=== PATIENT | male | born 1945 | race American Indian/Alaskan Native ===

== ENCOUNTER 2017-08-08 09:55 | Inpatient (IN) | payer MEDICARE, MEDICAID ==
[2017-08-08 09:57] VITALS: BMI 16.0
[2017-08-08] MEDS ORDERED: Sodium Chloride 0.9% 1,000 ML IV STA (10:26)
[2017-08-08] MEDS ORDERED: Morphine 4 MG/ML VIAL IV STA ×2 (10:26→18:10)
--- NOTE | 2017-08-08 10:40 | ED PDOC ---
HPI: Abdomen Time Seen by Provider: 08/08/17 10:04 Chief Complaint (Provider): Abdominal pain History Per: Patient History/Exam Limitations: no limitations Onset/Duration Of Symptoms: Hrs Outside of [place] travel?: No Current Symptoms Are (Timing): Still Present Location Of Pain/Discomfort: Diffuse Associated Symptoms: denies: Fever, Vomiting, Diarrhea, Urinary Symptoms Additional Complaint(s): 72yo male, presents to ED for evaluation of abdominal pain, associated with nausea since 7 am this morning. patient states pain is constant, denies any fever, vomiting or diarrhea. Patient states his last bowel movement was yesterday, which was normal. He denies any dysuria, hematuria. Patient has no other medical complaints. Past Medical History Reviewed: Historical Data, Nursing Documentation, Vital Signs Vital Signs: Last Vital Signs Temp 99.1 F 08/10/17 11:54 Pulse 59 L 08/10/17 11:54 Resp 18 08/10/17 11:54 BP 145/85 08/10/17 11:54 Pulse Ox 97 08/10/17 11:54 - Medical History PMH: No Chronic Diseases - Surgical History Surgical History: No Surg Hx - Family History Family History: States: No Known Family Hx - Home Medications Home Medications: Ambulatory Orders Medication Instructions Recorded Diclofenac Sodium [Diclofenac 100 mg PO DAILY PRN 08/08/17 Sodium ER] Pantoprazole Sodium [Protonix] 40 mg PO DAILY 08/08/17 Sucralfate [Carafate Oral Susp] 10 ml PO BID 08/08/17 traMADol [Ultram] 50 mg PO Q6H PRN 08/08/17 amLODIPine [Norvasc] 10 mg PO DAILY #30 tab 08/10/17 - Allergies Allergies/Adverse Reactions: Allergies Allergy/AdvReac Type Severity Reaction Status Date / Time No Known Allergies Allergy Verified 08/08/17 10:26 Review of Systems ROS Statement: Except As Marked, All Systems Reviewed And Found Negative Constitutional: Negative for: Fever, Chills Gastrointestinal: Positive for: Nausea, Abdominal Pain. Negative for: Vomiting , Diarrhea Genitourinary Male: Negative for: Dysuria, Frequency, Hematuria Physical Exam - Reviewed Nursing Documentation Reviewed: Yes Vital Signs Reviewed: Yes - Physical Exam Appears: Positive for: Non-toxic, No Acute Distress Head Exam: Positive for: ATRAUMATIC, NORMAL INSPECTION, NORMOCEPHALIC Skin: Positive for: Normal Color Eye Exam: Positive for: Normal appearance Neck: Positive for: Normal, Supple Cardiovascular/Chest: Positive for: Regular Rate, Rhythm Respiratory: Positive for: Normal Breath Sounds. Negative for: Respiratory Distress Gastrointestinal/Abdominal: Positive for: Soft, Tenderness (diffuse). Negative for: Guarding, Rebound Neurologic/Psych: Positive for: Alert, Oriented. Negative for: Motor/Sensory Deficits - Laboratory Results Result Diagrams: 08/09/17 13:03 08/10/17 04:45 - ECG O2 Sat by Pulse Oximetry: 97 (RA) Pulse Ox Interpretation: Normal Medical Decision Making Medical Decision Making: Time: 1026 Impression: Abdominal pain Plan: -- CT AP w/ IV Contrast -- Labs -- Morphine 2mg IV -- Zofran 4mg IV -- IV Fluids Reassess Time: 1400 CT Abdomen IMPRESSION: Possible pancreas divisum. Recommend evaluation with MRCP. Dilated pancreatic duct. Dilated common bile duct. No calcified common duct calculus. No evidence of cholecystitis or cholelithiasis. Mild intrahepatic biliary dilatation. 14:50 Case discussed with vice president of news. Scribe Attestation: Documented by Margaret Rich acting as a scribe for aJnet Pastor MD. Provider Attestation: All medical record entries made by the Scribe were at my direction and personally dictated by me. I have reviewed the chart and agree that the record accurately reflects my personal performance of the history, physical exam, medical decision making, and the department course for this patient. I have also personally directed, reviewed, and agree with the discharge instructions and disposition. Disposition - Clinical Impression Clinical Impression: Pancreas divisum, Elevated BP without diagnosis of hypertension - Patient ED Disposition Is Patient to be Admitted: Yes - Disposition Disposition Time: 15:26 Condition: STABLE - Pt Status Changed To: Hospital Disposition Of: Inpatient - Admit Certification Admit to Inpatient:: After my assessment, the patient will require hospitalization for at least two midnights. This is because of the severity of symptoms shown, intensity of services needed, and/or the medical risk in this patient being treated as an outpatient. - POA Present On Arrival: None
[2017-08-08] MEDS ORDERED: Morphine 4 MG/ML VIAL ONE ×2 (11:10→18:05)
[2017-08-08 11:39] LABS: BASO % 0.9 % (0.0-2.0); HEMATOCRIT 46.5 % (35.0-51.0); LYMPH # 1.5 K/uL (1.0-4.3); LYMPH % 34.5 % (20.0-40.0); MEAN CELL VOLUME 95.8 fl (80.0-94.0); MEAN CORPUSCULAR HEMOGLOBIN 31.4 pg (27.0-31.0); MEAN CORPUSCULAR HGB CONC 32.8 g/dL (33.0-37.0); MEAN PLATELET VOLUME 9.2 fl (7.2-11.7); MONO # 0.4 K/uL (0.0-0.8); MONO % 10.4 % (0.0-10.0); NEUT # 2.3 K/uL (1.8-7.0); NEUT % 53.2 % (50.0-75.0); NRBC % 0.1 % (0.0-0.0); RED CELL DISTRIBUTION WIDTH 14.2 % (11.5-14.5); WHITE BLOOD COUNT 4.3 K/uL (4.8-10.8)
[2017-08-08 11:52] LABS: RBC URINE 1 /hpf (0-3); URINE BACTERIA RARE (<OCC); URINE BILIRUBIN NEGATIVE (NEGATIVE); URINE BLOOD NEGATIVE (NEGATIVE); URINE COLOR AMBER (YELLOW); URINE GLUCOSE (UA) NEG (Normal); URINE KETONE 20 mg/dL (NEGATIVE); URINE LEUKOCYTE ESTERASE NEG Leu/uL (Negative); URINE PROTEIN 100 mg/dL (NEGATIVE)
[2017-08-08 11:52] LABS: PARTIAL THROMBOPLASTIN TIME 30.7 Seconds (25.6-37.1)
[2017-08-08 11:53] LABS: WBC URINE 3 /hpf (0-5)
[2017-08-08 11:55] LABS: ALKALINE PHOSPHATASE 76 U/L (38-126); ALT/SGPT 160 U/L (21-72); AST/SGOT 126 U/L (17-59); BILIRUBIN,TOTAL 0.9 mg/dl (0.2-1.3); BLOOD UREA NITROGEN 15 mg/dl (9-20); CALCIUM 9.5 mg/dL (8.4-10.2); CARBON DIOXIDE 26 mmol/L (22-30); CHLORIDE 104 mmol/L (98-107); GFR AFRICAN-AMERICAN > 60; GLUCOSE,RANDOM 87 mg/dL (75-110); LIPASE 81 U/L (23-300); SODIUM 142 mmol/l (132-148); TOTAL PROTEIN 9.3 G/DL (6.3-8.2)
[2017-08-08 11:56] LABS: ALB/GLOB RATIO 1.1 (1.0-2.1)
[2017-08-08] MEDS ORDERED: Iohexol 300 100 ML IJ ONE (12:45)
[2017-08-08] MEDS ORDERED: Sodium Chloride 0.9% 50 ML IV ONE (12:45)
--- NOTE | 2017-08-08 13:57 | CT ---
PROCEDURE: CT Abdomen and Pelvis with contrast HISTORY: Gen abd pain, nausea COMPARISON: None. TECHNIQUE: Contrast dose: 95 mL Omnipaque 300 Radiation dose: Total exam DLP = 309.76 mGy-cm. This CT exam was performed using one or more of the following dose reduction techniques: Automated exposure control, adjustment of the mA and/or kV according to patient size, and/or use of iterative reconstruction technique. FINDINGS: LOWER THORAX: Unremarkable. LIVER: Nonspecific 8 mm low-attenuation lesion the anterior right hepatic lobe. No other hepatic mass identified. Mild intrahepatic biliary ductal dilatation. Normal size and contour. Normal attenuation. GALLBLADDER AND BILE DUCTS: No calcified gallstones or mural thickening. Dilated common bile duct up to approximately 10 mm. No calcified common duct stone is seen. The intrapancreatic portion of the common bile duct measures 5 mm. PANCREAS: No mass. No peripancreatic fluid. Diffuse mild dilatation of the pancreatic duct. There is questionable pancreas divisum, with possible insertion of the dilated ventral duct separately from the common bile duct, into the 2nd portion of the duodenum. There is a questionable separate dorsal duct. Recommend evaluation with MRCP. SPLEEN: Unremarkable. ADRENALS: Unremarkable. No mass. KIDNEYS AND URETERS: Unremarkable. No hydronephrosis. No solid mass. VASCULATURE: Unremarkable. No aortic aneurysm BOWEL: Unremarkable. No obstruction. No gross mural thickening. APPENDIX: Not identified. PERITONEUM: Unremarkable. No free fluid. No free air. LYMPH NODES: Unremarkable. No enlarged lymph nodes. BLADDER: Unremarkable. REPRODUCTIVE: Normal prostate BONES: No acute fracture. Status post ORIF left hip. There is Schmorl's node in the inferior T11 vertebral endplate. OTHER FINDINGS: None. IMPRESSION: Possible pancreas divisum. Recommend evaluation with MRCP. Dilated pancreatic duct. Dilated common bile duct. No calcified common duct calculus. No evidence of cholecystitis or cholelithiasis. Mild intrahepatic biliary dilatation.
[2017-08-08] MEDS ORDERED: Sodium Chloride 0.9% 1,000 ML IV SCH (20:00)
--- NOTE | 2017-08-08 20:01 | CP.PCM.HP ---
Past Patient History - Infectious Disease Hx of Infectious Diseases: None - Past Social History Smoking Status: Never Smoked - PSYCHIATRIC Hx Substance Use: No - SURGICAL HISTORY Hx Surgeries: Yes - ANESTHESIA Hx Anesthesia: Yes Hx Anesthesia Reactions: No Meds Allergies/Adverse Reactions: Allergies Allergy/AdvReac Type Severity Reaction Status Date / Time No Known Allergies Allergy Verified 08/08/17 10:26 Results - Vital Signs Recent Vital Signs: Last Vital Signs Temp 98.2 F 08/08/17 09:57 Pulse 61 08/08/17 17:10 Resp 14 08/08/17 17:10 BP 196/101 H 08/08/17 18:52 Pulse Ox 96 08/08/17 17:10 - Labs Result Diagrams: 08/08/17 11:33 08/08/17 11:33 Labs: Laboratory Results - last 24 hr 08/08/17 08/08/17 08/08/17 11:33 11:33 11:33 WBC 4.3 L RBC 4.85 Hgb 15.2 Hct 46.5 MCV 95.8 H MCH 31.4 H MCHC 32.8 L RDW 14.2 Plt Count 170 MPV 9.2 Neut % (Auto) 53.2 Lymph % (Auto) 34.5 [place] % (Auto) 10.4 H Eos % (Auto) 1.0 Baso % (Auto) 0.9 Neut # 2.3 Lymph # 1.5 [place] # 0.4 Eos # 0.0 Baso # 0.0 PT 11.2 INR 1.0 APTT 30.7 Sodium 142 Potassium 4.0 Chloride 104 Carbon Dioxide 26 Anion Gap 16 BUN 15 Creatinine 0.8 Est GFR ( Amer) > 60 Est GFR (Non-Af Amer) > 60 Random Glucose 87 Calcium 9.5 Total Bilirubin 0.9 AST 126 H ALT 160 H Alkaline Phosphatase 76 Total Protein 9.3 H Albumin 4.9 Globulin 4.4 H Albumin/Globulin Ratio 1.1 Lipase 81 Urine Color Urine Clarity Urine pH Ur Specific [place] Urine Protein Urine Glucose (UA) Urine Ketones Urine Blood Urine Nitrate Urine Bilirubin Urine Urobilinogen Ur Leukocyte Esterase Urine RBC (Auto) Urine Microscopic WBC Urine Bacteria Hyaline Casts 08/08/17 11:38 WBC RBC Hgb Hct MCV MCH MCHC RDW Plt Count MPV Neut % (Auto) Lymph % (Auto) [place] % (Auto) Eos % (Auto) Baso % (Auto) Neut # Lymph # [place] # Eos # Baso # PT INR APTT Sodium Potassium Chloride Carbon Dioxide Anion Gap BUN Creatinine Est GFR ( Amer) Est GFR (Non-Af Amer) Random Glucose Calcium Total Bilirubin AST ALT Alkaline Phosphatase Total Protein Albumin Globulin Albumin/Globulin Ratio Lipase Urine Color Madelyn Urine Clarity Slighty-cloudy Urine pH 5.0 Ur Specific [place] 1.031 H Urine Protein 100 Urine Glucose (UA) Neg Urine Ketones 20 Urine Blood Negative Urine Nitrate Negative Urine Bilirubin Negative Urine Urobilinogen 4.0 Ur Leukocyte Esterase Neg Urine RBC (Auto) 1 Urine Microscopic WBC 3 Urine Bacteria Rare Hyaline Casts 3-5 H Assessment & Plan (1) Abdominal pain Assessment and Plan: Pancreatic Divisum Dilated CBD IVF Pain medication PRN Zofran PRN GI Consult for EGD and Sphinctorectomy Status: Acute Priority: High
[2017-08-08] MEDS: Sodium Chloride 0.45% 1,000 ML IV SCH (23:51)
[2017-08-09] MEDS ORDERED: Pneumococcal 23-Valent Vaccine IM ONE (05:07)
[2017-08-09] MEDS ORDERED: Influenza Vaccine(65YR UP)/PF 180 MCG/0.5 ML SYRINGE IM ONE (05:07)
[2017-08-09] MEDS ORDERED: Influenza Vaccine 18yr & older 0.5 ML/45 MCG SYR IM ONE (06:00)
[2017-08-09] MEDS: Sucralfate 1 gm/10 ml Oral Susp UD PO SCH ×2 (08:37→18:38)
[2017-08-09] MEDS: Pantoprazole 40 mg EC Tab PO SCH (08:37)
--- NOTE | 2017-08-09 10:54 | CARD ---
APPROVED REPORT EKG Measurement Heart [id number] <Conclusion> Normal sinus rhythm Normal ECG
[2017-08-09 13:10] LABS: HEMATOCRIT 45.4 % (35.0-51.0); MEAN CELL VOLUME 94.6 fl (80.0-94.0); MEAN CORPUSCULAR HEMOGLOBIN 31.9 pg (27.0-31.0); MEAN CORPUSCULAR HGB CONC 33.7 g/dL (33.0-37.0); RED CELL DISTRIBUTION WIDTH 13.8 % (11.5-14.5); WHITE BLOOD COUNT 5.9 K/uL (4.8-10.8)
[2017-08-09 13:28] LABS: ALB/GLOB RATIO 1.1 (1.0-2.1); ALKALINE PHOSPHATASE 72 U/L (38-126); ALT/SGPT 135 U/L (21-72); AMYLASE 198 U/L (30-110); AST/SGOT 93 U/L (17-59); BILIRUBIN,TOTAL 0.8 mg/dl (0.2-1.3); BLOOD UREA NITROGEN 9 mg/dl (9-20); CALCIUM 9.3 mg/dL (8.4-10.2); CARBON DIOXIDE 27 mmol/L (22-30); CHLORIDE 106 mmol/L (98-107); GFR AFRICAN-AMERICAN > 60; GLUCOSE,RANDOM 89 mg/dL (75-110); LIPASE 130 U/L (23-300); POTASSIUM 4.4 MMOL/L (3.6-5.0); SODIUM 141 mmol/l (132-148); TOTAL PROTEIN 8.7 G/DL (6.3-8.2)
--- NOTE | 2017-08-09 14:59 | MRI ---
MRCP Indication: Pancreatic divisum, abdominal pain Technique: Multiplanar, multisequence MR images of the abdomen were obtained, including heavily T2 weighted MRCP images of the biliary system. Rotating maximum intensity projection images of the biliary system were generated. A total of 766 images were submitted for review. Comparison: CT abdomen and pelvis with contrast performed 08/08/17 Findings: Examination limited by patient motion as well as paucity of intra-abdominal fat. Distended gallbladder without evidence of gallstones or pericholecystic edema/wall thickening. The noncontrast imaged portions of the liver, adrenal glands, kidneys, and spleen appear grossly unremarkable. There is no intrahepatic biliary ductal dilatation. The common bile duct is not adequately visualized. The pancreatic duct appears dilated measuring approximately 6-7 mm. No definitive filling defects are identified within the limited visualized portions of the common bile duct or within the visualized pancreatic duct. Question presence of ventral and dorsal pancreatic ducts consistent with pancreatic divisum however this cannot be confirmed on this study due to extensive patient motion. No bulky abdominal lymphadenopathy is seen. No ascites. No acute osseous abnormality is detected. Impression: Examination markedly limited by patient motion as well as paucity of intra-abdominal fat. The pancreatic duct appears dilated measuring approximately 6-7 mm. No definitive filling defects are identified within the limited visualized portions of the common bile duct or within the visualized pancreatic duct. Question presence of ventral and dorsal pancreatic ducts consistent with pancreatic divisum however this cannot be confirmed on this study due to extensive patient motion. The common bile duct is not adequately visualized. Distended gallbladder without evidence of gallstones or pericholecystic edema/wall thickening.
--- NOTE | 2017-08-09 15:09 | CP.PCM.CON ---
History of Present Illness - History of Present Illness History of Present Illness: 72 yo male admitted with midabdominal pain. Had nausea but no diarrhea. Previously was well. No chills or fever. Review of Systems - Constitutional Constitutional: absent: Chills - EENT Eyes: absent: Change in Vision Ears: absent: Decreased Hearing Nose/Mouth/Throat: absent: Epistaxis - Cardiovascular Cardiovascular: absent: Chest Pain - Respiratory Respiratory: absent: Cough - Gastrointestinal Gastrointestinal: Abdominal Pain - Genitourinary Genitourinary: absent: Change in Urinary Stream Past Patient History - Infectious Disease Hx of Infectious Diseases: None - Past Medical History & Family History Past Medical History?: No - Past Social History Smoking Status: Current Some Days Smoker - MUSCULOSKELETAL/RHEUMATOLOGICAL Hx Falls: No - PSYCHIATRIC Hx Substance Use: No - SURGICAL HISTORY Hx Surgeries: No - ANESTHESIA Hx Anesthesia: No Hx Anesthesia Reactions: No Meds Allergies/Adverse Reactions: Allergies Allergy/AdvReac Type Severity Reaction Status Date / Time No Known Allergies Allergy Verified 08/08/17 10:26 - Medications Medications: Current Medications Heparin Sodium (Porcine) (Heparin) 5,000 units SC Q8 [facility] PRN Reason: Protocol Last Admin: 08/09/17 08:37 Dose: Not Given Hydralazine HCl (Apresoline) 10 mg IVP Q6 PRN PRN Reason: Systolic Blood Pressure Hydromorphone HCl (Dilaudid) 0.5 mg IVP Q4 PRN PRN Reason: Pain, severe (8-10) Sodium Chloride (Sodium Chloride 0.45%) 1,000 mls @ 80 mls/hr IV .[id number] [facility] Stop: 08/09/17 23:19 Last Admin: 08/08/17 23:51 Dose: 80 mls/hr Ondansetron HCl (Zofran Inj) 4 mg IVP Q6 PRN PRN Reason: Nausea/Vomiting Pantoprazole Sodium (Protonix Ec Tab) 40 mg PO DAILY [facility] Last Admin: 08/09/17 08:37 Dose: Not Given Sucralfate (Carafate Oral Susp) 1 gm PO BID [facility] Last Admin: 08/09/17 08:37 Dose: Not Given Tramadol HCl (Ultram) 50 mg PO Q6H PRN PRN Reason: Pain, severe (8-10) Physical Exam - Constitutional Appears: Well - Head Exam Head Exam: ATRAUMATIC - Eye Exam Eye Exam: Normal appearance - ENT Exam ENT Exam: Mucous Membranes Moist - Neck Exam Neck exam: Positive for: Normal Inspection - Respiratory Exam Respiratory Exam: Clear to Auscultation Bilateral - Cardiovascular Exam Cardiovascular Exam: REGULAR RHYTHM, +S1, +S2 - GI/Abdominal Exam GI & Abdominal Exam: Normal Bowel Sounds, Soft, Tenderness Additional comments: periumbillical tenderness Results - Vital Signs Recent Vital Signs: Last Vital Signs Temp 98.8 F 08/09/17 12:03 Pulse 57 L 08/09/17 12:03 Resp 18 08/09/17 12:03 BP 168/70 H 08/09/17 12:03 Pulse Ox 98 08/09/17 12:03 - Labs Result Diagrams: 08/09/17 13:03 08/09/17 13:03 Labs: Laboratory Results - last 24 hr 08/08/17 08/09/17 08/09/17 21:19 13:03 13:03 WBC 5.9 RBC 4.80 Hgb 15.3 Hct 45.4 MCV 94.6 H MCH 31.9 H MCHC 33.7 RDW 13.8 Plt Count 163 Sodium 141 Potassium 4.4 Chloride 106 Carbon Dioxide 27 Anion Gap 12 BUN 9 Creatinine 0.7 L Est GFR ( Amer) > 60 Est GFR (Non-Af Amer) > 60 Random Glucose 89 Calcium 9.3 Total Bilirubin 0.8 AST 93 H D ALT 135 H Alkaline Phosphatase 72 Total Protein 8.7 H Albumin 4.5 Globulin 4.2 H Albumin/Globulin Ratio 1.1 Amylase 198 H Lipase 130 Urine Opiates Screen Positive H Urine Methadone Screen Negative Ur Barbiturates Screen Negative Ur Phencyclidine Scrn Negative Ur Amphetamines Screen Negative U Benzodiazepines Scrn Negative U Oth Cocaine Metabols Negative U Cannabinoids Screen Positive H - Imaging and Cardiology CT scan - abdomen Status: Report reviewed by me MRI - abdomen Status: Report reviewed by me Assessment & Plan (1) Abdominal pain Assessment and Plan: Patient with dilated pancreatic duct. MRCP inconclusive for pancreas divisum. His symptoms arenot c/w pancreatitis. and is already feeling well. Advance diet as tolerated. Status: Acute Priority: High
[2017-08-09] MEDS: Sodium Chloride 0.45% 1,000 ML IV SCH (15:34)
--- NOTE | 2017-08-09 23:51 | CP.PCM.PN ---
Subjective - Date & Time of Evaluation Date of Evaluation: 08/09/17 Time of Evaluation: 17:50 Objective - Vital Signs/Intake and Output Vital Signs (last 24 hours): Temp Pulse Resp BP Pulse Ox 98.9 F 59 L 16 149/87 97 08/09/17 19:33 08/09/17 19:33 08/09/17 19:33 08/09/17 19:33 08/09/17 19:33 - Medications Medications: Current Medications Amlodipine Besylate (Norvasc) 10 mg PO DAILY [facility] Heparin Sodium (Porcine) (Heparin) 5,000 units SC Q8 [facility] PRN Reason: Protocol Last Admin: 08/09/17 18:39 Dose: 5,000 units Hydralazine HCl (Apresoline) 10 mg IVP Q6 PRN PRN Reason: Systolic Blood Pressure Hydromorphone HCl (Dilaudid) 0.5 mg IVP Q4 PRN PRN Reason: Pain, severe (8-10) Ondansetron HCl (Zofran Inj) 4 mg IVP Q6 PRN PRN Reason: Nausea/Vomiting Pantoprazole Sodium (Protonix Ec Tab) 40 mg PO DAILY [facility] Last Admin: 08/09/17 08:37 Dose: Not Given Sucralfate (Carafate Oral Susp) 1 gm PO BID [facility] Last Admin: 08/09/17 18:38 Dose: 1 gm Tramadol HCl (Ultram) 50 mg PO Q6H PRN PRN Reason: Pain, severe (8-10) - Labs Labs: 08/09/17 13:03 08/09/17 13:03 PT 11.2 Seconds (9.8-13.1) 08/08/17 11:33 INR 1.0 (0.9-1.2) 08/08/17 11:33 APTT 30.7 Seconds (25.6-37.1) 08/08/17 11:33 Assessment and Plan (1) Abdominal pain Status: Acute
[2017-08-10 05:16] VITALS: RESP 18; O2SAT 97
[2017-08-10 06:55] LABS: ALKALINE PHOSPHATASE 61 U/L (38-126); ALT/SGPT 113 U/L (21-72); AST/SGOT 74 U/L (17-59); BILIRUBIN,TOTAL 0.9 mg/dl (0.2-1.3); BLOOD UREA NITROGEN 8 mg/dl (9-20); CALCIUM 9.1 mg/dL (8.4-10.2); CARBON DIOXIDE 27 mmol/L (22-30); CHLORIDE 106 mmol/L (98-107); GFR AFRICAN-AMERICAN > 60; GLUCOSE,RANDOM 99 mg/dL (75-110); POTASSIUM 4.3 MMOL/L (3.6-5.0); SODIUM 140 mmol/l (132-148)
[2017-08-10] MEDS: Sucralfate 1 gm/10 ml Oral Susp UD PO SCH (09:17)
[2017-08-10] MEDS: Pantoprazole 40 mg EC Tab PO SCH (09:21)
[2017-08-10 11:55] VITALS: BP 145/85; PULSE 59; TEMP 99.1
--- NOTE | 2017-08-10 19:57 | CP.PCM.PN ---
Subjective - Date & Time of Evaluation Date of Evaluation: 08/10/17 Time of Evaluation: 10:00 - Subjective Subjective: Tolerating diet. No abdominal symptoms. Objective - Vital Signs/Intake and Output Vital Signs (last 24 hours): Temp Pulse Resp BP Pulse Ox 99.1 F 59 L 18 145/85 97 08/10/17 11:54 08/10/17 11:54 08/10/17 11:54 08/10/17 11:54 08/10/17 11:54 Intake and Output: 08/10/17 08/11/17 18:59 06:59 Intake Total 1200 Balance 1200 - Labs Labs: 08/09/17 13:03 08/10/17 04:45 PT 11.2 Seconds (9.8-13.1) 08/08/17 11:33 INR 1.0 (0.9-1.2) 08/08/17 11:33 APTT 30.7 Seconds (25.6-37.1) 08/08/17 11:33 - Head Exam Head Exam: ATRAUMATIC - Eye Exam Eye Exam: Normal appearance - ENT Exam ENT Exam: Normal Exam - Neck Exam Neck Exam: Normal Inspection - Respiratory Exam Respiratory Exam: Clear to Ausculation Bilateral - Cardiovascular Exam Cardiovascular Exam: REGULAR RHYTHM, +S1, +S2 - GI/Abdominal Exam GI & Abdominal Exam: Soft, Normal Bowel Sounds. absent: Tenderness Assessment and Plan (1) Abdominal pain Assessment & Plan: MRCP indeterminate for pancreas divisum. No evidence of pancreatitis now. May be discharged and have biliary evaluation as outpatient Status: Acute
--- NOTE | 2017-08-11 00:41 | CP.PCM.DIS ---
Provider - Provider Date of Admission: 08/08/17 15:26 Attending physician: Marie Stafford MD Time Spent in preparation of Discharge (in minutes): 25 Diagnosis - Discharge Diagnosis (1) Abdominal pain Status: Acute Priority: High Hospital Course - Lab Results Lab Results: Most Recent Lab Values WBC 5.9 K/uL (4.8-10.8) 08/09/17 13:03 RBC 4.80 Mil/uL (4.40-5.90) 08/09/17 13:03 Hgb 15.3 g/dL (12.0-18.0) 08/09/17 13:03 Hct 45.4 % (35.0-51.0) 08/09/17 13:03 MCV 94.6 fl (80.0-94.0) H 08/09/17 13:03 MCH 31.9 pg (27.0-31.0) H 08/09/17 13:03 MCHC 33.7 g/dL (33.0-37.0) 08/09/17 13:03 RDW 13.8 % (11.5-14.5) 08/09/17 13:03 Plt Count 163 K/uL (130-400) 08/09/17 13:03 MPV 9.2 fl (7.2-11.7) 08/08/17 11:33 Neut % (Auto) 53.2 % (50.0-75.0) 08/08/17 11:33 Lymph % (Auto) 34.5 % (20.0-40.0) 08/08/17 11:33 [place] % (Auto) 10.4 % (0.0-10.0) H 08/08/17 11:33 Eos % (Auto) 1.0 % (0.0-4.0) 08/08/17 11:33 Baso % (Auto) 0.9 % (0.0-2.0) 08/08/17 11:33 Neut # 2.3 K/uL (1.8-7.0) 08/08/17 11:33 Lymph # 1.5 K/uL (1.0-4.3) 08/08/17 11:33 [place] # 0.4 K/uL (0.0-0.8) 08/08/17 11:33 Eos # 0.0 K/uL (0.0-0.7) 08/08/17 11:33 Baso # 0.0 K/uL (0.0-0.2) 08/08/17 11:33 PT 11.2 Seconds (9.8-13.1) 08/08/17 11:33 INR 1.0 (0.9-1.2) 08/08/17 11:33 APTT 30.7 Seconds (25.6-37.1) 08/08/17 11:33 Sodium 140 mmol/l (132-148) 08/10/17 04:45 Potassium 4.3 MMOL/L (3.6-5.0) 08/10/17 04:45 Chloride 106 mmol/L (98-107) 08/10/17 04:45 Carbon Dioxide 27 mmol/L (22-30) 08/10/17 04:45 Anion Gap 11 (10-20) 08/10/17 04:45 BUN 8 mg/dl (9-20) L 08/10/17 04:45 Creatinine 0.7 mg/dl (0.8-1.5) L 08/10/17 04:45 Est GFR ( Amer) > 60 08/10/17 04:45 Est GFR (Non-Af Amer) > 60 08/10/17 04:45 Random Glucose 99 mg/dL (75-110) 08/10/17 04:45 Calcium 9.1 mg/dL (8.4-10.2) 08/10/17 04:45 Total Bilirubin 0.9 mg/dl (0.2-1.3) 08/10/17 04:45 AST 74 U/L (17-59) H D 08/10/17 04:45 ALT 113 U/L (21-72) H 08/10/17 04:45 Alkaline Phosphatase 61 U/L (38-126) 08/10/17 04:45 Total Protein 8.0 G/DL (6.3-8.2) 08/10/17 04:45 Albumin 4.1 g/dL (3.5-5.0) 08/10/17 04:45 Globulin 3.9 gm/dL (2.2-3.9) 08/10/17 04:45 Albumin/Globulin Ratio 1.0 (1.0-2.1) 08/10/17 04:45 Amylase 198 U/L (30-110) H 08/09/17 13:03 Lipase 130 U/L (23-300) 08/09/17 13:03 Urine Color Madelyn (YELLOW) 08/08/17 11:38 Urine Clarity Slighty-cloudy (Clear) 08/08/17 11:38 Urine pH 5.0 (5.0-8.0) 08/08/17 11:38 Ur Specific [place] 1.031 (1.003-1.030) H 08/08/17 11:38 Urine Protein 100 mg/dL (NEGATIVE) 08/08/17 11:38 Urine Glucose (UA) Neg mg/dL (Normal) 08/08/17 11:38 Urine Ketones 20 mg/dL (NEGATIVE) 08/08/17 11:38 Urine Blood Negative (NEGATIVE) 08/08/17 11:38 Urine Nitrate Negative (NEGATIVE) 08/08/17 11:38 Urine Bilirubin Negative (NEGATIVE) 08/08/17 11:38 Urine Urobilinogen 4.0 mg/dL (0.2-1.0) 08/08/17 11:38 Ur Leukocyte Esterase Neg Frank/uL (Negative) 08/08/17 11:38 Urine RBC (Auto) 1 /hpf (0-3) 08/08/17 11:38 Urine Microscopic WBC 3 /hpf (0-5) 08/08/17 11:38 Urine Bacteria Rare (<OCC) 08/08/17 11:38 Hyaline Casts 3-5 /hpf (0-2) H 08/08/17 11:38 Urine Opiates Screen Positive (NEGATIVE) H 08/08/17 21:19 Urine Methadone Screen Negative (NEGATIVE) 08/08/17 21:19 Ur Barbiturates Screen Negative (NEGATIVE) 08/08/17 21:19 Ur Phencyclidine Scrn Negative (NEGATIVE) 08/08/17 21:19 Ur Amphetamines Screen Negative (NEGATIVE) 08/08/17 21:19 U Benzodiazepines Scrn Negative (NEGATIVE) 08/08/17 21:19 U Oth Cocaine Metabols Negative (NEGATIVE) 08/08/17 21:19 U Cannabinoids Screen Positive (NEGATIVE) H 08/08/17 21:19 Discharge Exam - Head Exam Head Exam: ATRAUMATIC Discharge Plan - Discharge Medications Prescriptions: amLODIPine [Norvasc] 10 mg PO DAILY #30 tab - Follow Up Plan Condition: GUARDED Disposition: Trans to Other Acute Care Hosp Instructions: Acute Abdominal Pain (DC), Acute Abdominal Pain (GEN) Additional Instructions: pt. tolerating diet well, denies abd pain, n/v/d pt. cleared for discharge to home today by and Rx for meds provided f/u with pmd in 1 week
== END 2017-08-10 13:58 | disposition home or self-care (01) | DRG 392 ==
LOC: H.ER 09:55 → H.ERHOLD 15:26 → H.TEL 21:32
PROVIDERS: ADMIT Internal Medicine; ATTEND Internal Medicine
DX: R10.9 Unspecified abdominal pain (principal); K83.8 Other specified diseases of biliary tract; K86.89 Other specified diseases of pancreas; R03.0 Elevated blood-pressure reading, without diagnosis of hypertension

== ENCOUNTER 2017-10-13 19:49 | Inpatient (IN) | payer MEDICARE, OTHER ==
[2017-10-13 19:49] VITALS: BMI 16.0
[2017-10-13] MEDS ORDERED: Sodium Chloride 0.9% 1,000 ML IV STA (20:41)
--- NOTE | 2017-10-13 21:03 | ED PDOC ---
Syncope/Near Syncope/Dizziness Time Seen by Provider: 10/13/17 20:07 Chief Complaint (Nursing): Syncope Chief Complaint (Provider): Syncope History Per: Patient, EMS History/Exam Limitations: no limitations Onset/Duration Of Symptoms: Days (x today) Additional Complaint(s): Mr. Ac is a 72 year old male who presents to the emergency department via EMS for lightheadedness prior to onset. Patient reports he was at the nursing home and blacked out. Reports non-bilious, non-bloody vomiting , watery, non-bloody diarrhea and mild abdominal crampy pain. Patient believes abdominal pain may have been from burger eaten earlier today. Reports he has a history of fainting in the past due to dehydration. Denies chest pain, shortness of breath, urinary symptoms, focal weakness, blurry vision. PMD: Elena Past Medical History Reviewed: Historical Data, Nursing Documentation, Vital Signs Vital Signs: Last Vital Signs Temp 97 F L 10/13/17 19:55 Pulse 62 10/13/17 19:55 Resp 16 10/13/17 19:55 BP 114/72 10/13/17 19:55 Pulse Ox 97 10/13/17 19:55 - Medical History PMH: No Chronic Diseases - Surgical History Surgical History: No Surg Hx - Family History Family History: States: Unknown Family Hx - Social History Current smoker - smoking cessation education provided: No Alcohol: Occasional Drugs: Cannabis - Home Medications Home Medications: Ambulatory Orders Medication Instructions Recorded No Known Home Med 10/14/17 - Allergies Allergies/Adverse Reactions: Allergies Allergy/AdvReac Type Severity Reaction Status Date / Time No Known Allergies Allergy Verified 08/08/17 10:26 Review of Systems ROS Statement: Except As Marked, All Systems Reviewed And Found Negative Eyes: Negative for: Other (blurry vision) Cardiovascular: Positive for: Light Headedness. Negative for: Chest Pain Respiratory: Negative for: Shortness of Breath Gastrointestinal: Positive for: Vomiting (Non-bilious, non-bloody), Abdominal Pain (Mild abdominal crampy), Diarrhea (Water, non-bloody) Genitourinary Male: Negative for: Dysuria, Hematuria Neurological: Negative for: Weakness Physical Exam - Reviewed Nursing Documentation Reviewed: Yes Vital Signs Reviewed: Yes - Physical Exam Appears: Positive for: Non-toxic, No Acute Distress (appear cachectic) Head Exam: Positive for: ATRAUMATIC, NORMOCEPHALIC Skin: Positive for: Warm, Dry Eye Exam: Positive for: EOMI, PERRL ENT: Negative for: Pharyngeal Erythema, Tonsillar Exudate Neck: Positive for: Painless ROM, Supple Cardiovascular/Chest: Positive for: Regular Rate, Rhythm, Chest Non Tender. Negative for: Murmur Respiratory: Positive for: Normal Breath Sounds. Negative for: Wheezing Gastrointestinal/Abdominal: Positive for: Soft. Negative for: Tenderness, Mass , Distended, Guarding, Rebound Back: Positive for: Normal Inspection. Negative for: Decreased ROM Extremity: Positive for: Normal ROM. Negative for: Deformity Lymphatic: Negative for: Adenopathy Neurologic/Psych: Positive for: Alert, Oriented (x3). Negative for: Motor/ Sensory Deficits - Laboratory Results Result Diagrams: 10/13/17 21:45 10/13/17 21:45 - ECG ECG: Positive for: Interpreted By Me ECG Rhythm: Positive for: Normal QRS, Normal ST Segment, Junctional Rhythm O2 Sat by Pulse Oximetry: 97 (RA) Pulse Ox Interpretation: Normal Medical Decision Making Medical Decision Making: Time: 20:12 Impression(s): Syncope, Gastroenteritis, Dehydration Differentials include, but not limited to: Electrolyte abnormalities, Intoxication, Cardiac arrhythmia Plan: - EKG - Glucose, Blood POC STAT Time: 20:39 - Type and Screen - Venous Blood Gas Shock Panel - Alcohol Serum - CMP - Drug Screen, Urine - Lipase - Magnesium - Phosphorous - Troponin I - CBC - Partial Thromboplastin Time - Prothrombin Time Time: 20:41 - Sodium Chloride 0.9% 1,000 ml IV 1,000 mls/hr Elevated BUN c/w dehydration Pt with syncopal episode and advanced age. Needs observation given cardiac arrythmia still possible diagnoses. Scribe Attestation: Documented by Diogenes Soni, acting as a scribe for Alejandrina Hdez MD. Provider Scribe Attestation: All medical record entries made by the Scribe were at my direction and personally dictated by me. I have reviewed the chart and agree that the record accurately reflects my personal performance of the history, physical exam, medical decision making, and the department course for this patient. I have also personally directed, reviewed, and agree with the discharge instructions and disposition. Disposition - Clinical Impression Clinical Impression: Syncope, Gastroenteritis, Dehydration Discussed With DrDamaris: Jens Rivera Doctor Will See Patient In The: Hospital Counseled Patient/Family Regarding: Studies Performed, Diagnosis - Disposition Disposition Time: 23:00 Condition: GUARDED Forms: [employer] (Guinean) - Pt Status Changed To: Hospital Disposition Of: Observation - POA Present On Arrival: Falls Or Trauma
[2017-10-13 22:04] LABS: BASO % 1.3 % (0.0-2.0); EOS % 0.8 % (0.0-4.0); HEMOGLOBIN 13.1 g/dL (12.0-18.0); LYMPH % 31.2 % (20.0-40.0); MEAN CELL VOLUME 94.5 fl (80.0-94.0); MEAN CORPUSCULAR HEMOGLOBIN 31.2 pg (27.0-31.0); MEAN PLATELET VOLUME 9.3 fl (7.2-11.7); MONO # 0.6 K/uL (0.0-0.8); MONO % 17.1 % (0.0-10.0); NEUT # 1.7 K/uL (1.8-7.0); NEUT % 49.6 % (50.0-75.0); NRBC % 0.2 % (0.0-0.0); RBC 4.19 Mil/uL (4.40-5.90); RED CELL DISTRIBUTION WIDTH 13.4 % (11.5-14.5); WHITE BLOOD COUNT 3.3 K/uL (4.8-10.8)
[2017-10-13 22:16] LABS: VENOUS BLOOD GAS BASE EXCESS 0.8 mmol/L (0.0-2.0); VENOUS BLOOD GAS PCO2 46 mmHg (40-60); VENOUS BLOOD GAS PO2 48 mm/Hg (30-55); VENOUS BLOOD PH 7.37 (7.32-7.43)
[2017-10-13 22:18] LABS: PARTIAL THROMBOPLASTIN TIME 28.2 Seconds (25.6-37.1); PROTHROMBIN TIME 11.4 Seconds (9.8-13.1)
[2017-10-13 22:26] LABS: ALB/GLOB RATIO 1.1 (1.0-2.1); ALBUMIN 4.2 g/dL (3.5-5.0); ALT/SGPT 74 U/L (21-72); AST/SGOT 61 U/L (17-59); BLOOD UREA NITROGEN 21 mg/dl (9-20); CALCIUM 9.3 mg/dL (8.4-10.2); GFR AFRICAN-AMERICAN > 60; GFR NON-AFRICAN AMERICAN > 60; LIPASE 135 U/L (23-300)
[2017-10-14 00:14] LABS: BARBITURATES, UR NEGATIVE (NEGATIVE); BENZODIAZEPINES, UR NEGATIVE (NEGATIVE); OPIATES, UR NEGATIVE (NEGATIVE); PHENCYCLIDINE, UR NEGATIVE (NEGATIVE)
[2017-10-14] MEDS ORDERED: Ciprofloxacin 400mg/200ml D5W 400 MG/200 ML BAG IVPB ONE (05:19)
[2017-10-14] MEDS ORDERED: metroNIDAZOLE 500mg/100ml NS 100 ML IVPB ONE ×2 (05:19→15:47)
[2017-10-14] MEDS: metroNIDAZOLE 500mg/100ml NS 100 ML IVPB SCH (05:40)
[2017-10-14] MEDS ORDERED: Ciprofloxacin 400mg/200ml D5W 400 MG/200 ML BAG IVPB SCH (09:00)
[2017-10-14] MEDS ORDERED: Iodixanol 320 MG/ML 100 ML BOTTLE IV ONE (09:30)
--- NOTE | 2017-10-14 09:35 | CP.PCM.CON ---
<Marilyn Gomes - Last Filed: 10/14/17 12:11> History of Present Illness - History of Present Illness History of Present Illness: PGY4 Initial GI consult note Reason for consultation: diarrhea, vomiting Osorio Ibarra is a 72M w/ HTN who presents to the ER from the senior care after having a witnessed syncopal episode. As per pt, he was in his normal health prior to yesterday. He states that 2 days ago he had a burger for dinner. He states that 6-8 hrs later, he started to have intractable nausea, vomiting and diarrhea. He states that the emesis was non-bilious and bloody. He reports 2-3 episodes and last bout was prior to arrival. He also states that he has 2-3 episodes of non-bloody diarrhea. He denies any sick contacts or any other individuals with similiar symptoms. In the ER is was started on cipro and flagyl and is no asymptomatic. He is also now hungry. He was previous admitted in at [facility] in 07/2017 for abd pain. He was noted to have a pancreatic divisim on MRCP and a CBD of 1cm on CT abd/Pelv and discharged after his symptoms resolved. PMHx: HTN PSHx: Denies Social hx: denies any illicit drug use, currently smokes, daily alcohol use, at least 1 shot of either vodka or rum for years, last etoh use 1 week ago ENdo hx denies family hx denies Past Patient History - Infectious Disease Hx of Infectious Diseases: None - Past Medical History & Family History Past Medical History?: No - Past Social History Alcohol: Occasional Drugs: Cannabis - MUSCULOSKELETAL/RHEUMATOLOGICAL Hx Falls: No - PSYCHIATRIC Hx Substance Use: No - SURGICAL HISTORY Hx Surgeries: No - ANESTHESIA Hx Anesthesia: No Hx Anesthesia Reactions: No Meds Allergies/Adverse Reactions: Allergies Allergy/AdvReac Type Severity Reaction Status Date / Time No Known Allergies Allergy Verified 08/08/17 10:26 - Medications Medications: Current Medications Enoxaparin Sodium (Lovenox) 40 mg SC DAILY LINDSAY PRN Reason: Protocol Ciprofloxacin (Cipro 400mg/200ml Dsw) 400 mg in 200 mls @ 200 mls/hr IVPB Q12 LINDSAY PRN Reason: Protocol Last Admin: 10/14/17 07:02 Dose: 200 mls/hr Metronidazole (Flagyl 500mg/100ml Ns) 100 mls @ 100 mls/hr IVPB Q8 LINDSAY PRN Reason: Protocol Last Admin: 10/14/17 05:40 Dose: 100 mls/hr Physical Exam - Constitutional Appears: Well, No Acute Distress - Head Exam Head Exam: ATRAUMATIC, NORMOCEPHALIC - Eye Exam Eye Exam: Normal appearance Pupil Exam: NORMAL ACCOMODATION, PERRL - ENT Exam ENT Exam: Mucous Membranes Moist, Normal Exam - Neck Exam Neck exam: Positive for: Normal Inspection - Respiratory Exam Respiratory Exam: Clear to Auscultation Bilateral, NORMAL BREATHING PATTERN. absent: Rales, Rhonchi, Wheezes, Respiratory Distress - Cardiovascular Exam Cardiovascular Exam: REGULAR RHYTHM, +S1, +S2 - GI/Abdominal Exam GI & Abdominal Exam: Normal Bowel Sounds, Soft. absent: Organomegaly, Rigid, Tenderness - Rectal Exam Rectal Exam: absent: Black Stool, Hemorrhoids - Extremities Exam Extremities exam: Negative for: joint swelling, pedal edema - Neurological Exam Neurological exam: Alert, Oriented x3 - Psychiatric Exam Psychiatric exam: Normal Affect, Normal Mood - Skin Skin Exam: Dry, Intact, Normal Color, Warm Results - Vital Signs Recent Vital Signs: Last Vital Signs Temp 98.8 F 10/14/17 05:01 Pulse 55 L 10/14/17 05:01 Resp 16 10/14/17 05:01 BP 155/77 H 10/14/17 05:01 Pulse Ox 100 10/14/17 05:01 - Labs Result Diagrams: 10/13/17 21:45 10/13/17 21:45 Labs: Laboratory Results - last 24 hr 10/13/17 10/13/17 10/13/17 20:46 21:45 21:45 WBC 3.3 L RBC 4.19 L Hgb 13.1 D Hct 39.6 MCV 94.5 H MCH 31.2 H MCHC 33.0 RDW 13.4 Plt Count 140 MPV 9.3 Neut % (Auto) 49.6 L Lymph % (Auto) 31.2 Reagan % (Auto) 17.1 H Eos % (Auto) 0.8 Baso % (Auto) 1.3 Neut # (Auto) 1.7 L Lymph # (Auto) 1.0 Reagan # (Auto) 0.6 Eos # (Auto) 0.0 Baso # (Auto) 0.0 PT INR APTT pO2 VBG pH VBG pCO2 VBG HCO3 VBG Total CO2 VBG O2 Sat (Calc) VBG Base Excess VBG Potassium Glucose Lactate FiO2 Sodium 143 Potassium 4.0 Chloride 105 Carbon Dioxide 26 Anion Gap 16 BUN 21 H Creatinine 0.9 Est GFR ( Amer) > 60 Est GFR (Non-Af Amer) > 60 Random Glucose 110 Calcium 9.3 Phosphorus 5.1 H Magnesium 2.0 Total Bilirubin 0.4 AST 61 H ALT 74 H D Alkaline Phosphatase 53 Troponin I < 0.0120 Total Protein 8.0 Albumin 4.2 Globulin 3.8 Albumin/Globulin Ratio 1.1 Lipase 135 Venous Blood Potassium Urine Opiates Screen Urine Methadone Screen Ur Barbiturates Screen Ur Phencyclidine Scrn Ur Amphetamines Screen U Benzodiazepines Scrn U Oth Cocaine Metabols U Cannabinoids Screen Alcohol, Quantitative < 10 Blood Type A POSITIVE Antibody Screen Negative BBK History Checked No verified bt 10/13/17 10/13/17 10/13/17 21:45 22:11 23:56 WBC RBC Hgb Hct MCV MCH MCHC RDW Plt Count MPV Neut % (Auto) Lymph % (Auto) Reagan % (Auto) Eos % (Auto) Baso % (Auto) Neut # (Auto) Lymph # (Auto) Reagan # (Auto) Eos # (Auto) Baso # (Auto) PT 11.4 INR 1.0 APTT 28.2 pO2 48 VBG pH 7.37 VBG pCO2 46 VBG HCO3 25.1 VBG Total CO2 28.0 VBG O2 Sat (Calc) 87.6 H VBG Base Excess 0.8 VBG Potassium 3.8 Glucose 110 Lactate 2.2 H FiO2 21.0 Sodium 139.0 Potassium Chloride 103.0 Carbon Dioxide Anion Gap BUN Creatinine Est GFR ( Amer) Est GFR (Non-Af Amer) Random Glucose Calcium Phosphorus Magnesium Total Bilirubin AST ALT Alkaline Phosphatase Troponin I Total Protein Albumin Globulin Albumin/Globulin Ratio Lipase Venous Blood Potassium 3.8 Urine Opiates Screen Negative Urine Methadone Screen Negative Ur Barbiturates Screen Negative Ur Phencyclidine Scrn Negative Ur Amphetamines Screen Negative U Benzodiazepines Scrn Negative U Oth Cocaine Metabols Negative U Cannabinoids Screen Positive H Alcohol, Quantitative Blood Type Antibody Screen BBK History Checked Assessment & Plan - Assessment and Plan (Free Text) Assessment: Osorio Ibarra is a 72M w/ hx of HTN who presented to the ER with complaints of vomiting, nausea, and diarrhea Gastroenteritis intractable nausea and vomiting (resolved) 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 diff -pt is not likely to have pancreatitis, will not persue previous imaging finding -abx not needed from GI standpoint - will sign off D/W Dr. Andrea <Emre CANNON,[facility] - Last Filed: 10/14/17 14:11> Meds - Medications Medications: Current Medications Enoxaparin Sodium (Lovenox) 40 mg SC DAILY LINDSAY PRN Reason: Protocol Ciprofloxacin (Cipro 400mg/200ml Dsw) 400 mg in 200 mls @ 200 mls/hr IVPB Q12 LINDSAY PRN Reason: Protocol Last Admin: 10/14/17 07:02 Dose: 200 mls/hr Metronidazole (Flagyl 500mg/100ml Ns) 100 mls @ 100 mls/hr IVPB Q8 LINDSAY PRN Reason: Protocol Last Admin: 10/14/17 05:40 Dose: 100 mls/hr Results - Vital Signs Recent Vital Signs: Last Vital Signs Temp 98.8 F 10/14/17 05:01 Pulse 55 L 10/14/17 05:01 Resp 16 10/14/17 05:01 BP 155/77 H 10/14/17 05:01 Pulse Ox 100 10/14/17 05:01 - Labs Result Diagrams: 10/13/17 21:45 10/13/17 21:45 Labs: Laboratory Results - last 24 hr 10/13/17 10/13/17 10/13/17 20:46 21:45 21:45 WBC 3.3 L RBC 4.19 L Hgb 13.1 D Hct 39.6 MCV 94.5 H MCH 31.2 H MCHC 33.0 RDW 13.4 Plt Count 140 MPV 9.3 Neut % (Auto) 49.6 L Lymph % (Auto) 31.2 Reagan % (Auto) 17.1 H Eos % (Auto) 0.8 Baso % (Auto) 1.3 Neut # (Auto) 1.7 L Lymph # (Auto) 1.0 Reagan # (Auto) 0.6 Eos # (Auto) 0.0 Baso # (Auto) 0.0 PT INR APTT pO2 VBG pH VBG pCO2 VBG HCO3 VBG Total CO2 VBG O2 Sat (Calc) VBG Base Excess VBG Potassium Glucose Lactate FiO2 Sodium 143 Potassium 4.0 Chloride 105 Carbon Dioxide 26 Anion Gap 16 BUN 21 H Creatinine 0.9 Est GFR ( Amer) > 60 Est GFR (Non-Af Amer) > 60 Random Glucose 110 Calcium 9.3 Phosphorus 5.1 H Magnesium 2.0 Total Bilirubin 0.4 AST 61 H ALT 74 H D Alkaline Phosphatase 53 Troponin I < 0.0120 Total Protein 8.0 Albumin 4.2 Globulin 3.8 Albumin/Globulin Ratio 1.1 Lipase 135 Venous Blood Potassium Urine Opiates Screen Urine Methadone Screen Ur Barbiturates Screen Ur Phencyclidine Scrn Ur Amphetamines Screen U Benzodiazepines Scrn U Oth Cocaine Metabols U Cannabinoids Screen Alcohol, Quantitative < 10 Blood Type A POSITIVE Antibody Screen Negative BBK History Checked No verified bt 10/13/17 10/13/17 10/13/17 21:45 22:11 23:56 WBC RBC Hgb Hct MCV MCH MCHC RDW Plt Count MPV Neut % (Auto) Lymph % (Auto) Reagan % (Auto) Eos % (Auto) Baso % (Auto) Neut # (Auto) Lymph # (Auto) Reagan # (Auto) Eos # (Auto) Baso # (Auto) PT 11.4 INR 1.0 APTT 28.2 pO2 48 VBG pH 7.37 VBG pCO2 46 VBG HCO3 25.1 VBG Total CO2 28.0 VBG O2 Sat (Calc) 87.6 H VBG Base Excess 0.8 VBG Potassium 3.8 Glucose 110 Lactate 2.2 H FiO2 21.0 Sodium 139.0 Potassium Chloride 103.0 Carbon Dioxide Anion Gap BUN Creatinine Est GFR ( Amer) Est GFR (Non-Af Amer) Random Glucose Calcium Phosphorus Magnesium Total Bilirubin AST ALT Alkaline Phosphatase Troponin I Total Protein Albumin Globulin Albumin/Globulin Ratio Lipase Venous Blood Potassium 3.8 Urine Opiates Screen Negative Urine Methadone Screen Negative Ur Barbiturates Screen Negative Ur Phencyclidine Scrn Negative Ur Amphetamines Screen Negative U Benzodiazepines Scrn Negative U Oth Cocaine Metabols Negative U Cannabinoids Screen Positive H Alcohol, Quantitative Blood Type Antibody Screen BBK History Checked Attending/Attestation - Attestation I have personally seen and examined this patient.: Yes I have fully participated in the care of the patient.: Yes I have reviewed all pertinent clinical information: Yes Notes (Text): 10/14/17 14:09 This is a 72 yr old M w/ hx of HTN and alcohol abuse/ dependance drinking vodka till last week who presented to the ER with complaints of vomiting, nausea, and diarrhea now resolved. his symptoms resolved but the imaging showed pancreatic divisum with questionable dialated PD on MRCP in 07/2017. His LFT are elevated and hepatitis and autoimmune serologies are sent. He is tolerating diet and symptoms are resolved which wsa due to GE. can be discharged to home. No role for EUS/ ERCP with no pancreatitis. Discussed with the team. Thank you for letting us participate in the care of your patient
--- NOTE | 2017-10-14 11:17 | CARD ---
APPROVED REPORT EKG Measurement Heart [id number] <Conclusion> Normal sinus rhythm Moderate voltage criteria for LVH, may be normal variant Borderline ECG
--- NOTE | 2017-10-14 11:57 | CT ---
PROCEDURE: CT Angiography of the neck and brain dated 10/14/2017. HISTORY: Syncope. COMPARISON: No prior study available comparison TECHNIQUE: Contiguous helical/ transaxial images of the neck were obtained from the level of the skull-base to the superior mediastinum in the arteriographic phase of enhancement. Coronal and sagittal reformats or also generated. IV contrast dose: 99 cc Visipaque 320 contrast material. Radiation Dose - DLP: 2241. 60 mGy-cm This CT exam was performed using one or more of the following dose reduction techniques: Automated exposure control, adjustment of the mA and/or kV according to patient size, and/or use of iterative reconstruction technique. . FINDINGS: The aortic arch is well opacified with plaque minor partially calcified atherosclerotic plaque changes seen along the undersurface of the transverse portion of the aortic arch. The origins of great vessels widely patent. The common carotid arteries, carotid bifurcations and internal carotid are also widely patent. Small curvilinear calcified plaque seen along the posterior margin right carotid bifurcation extending into the proximal margin of the right internal carotid artery. No evidence of occlusion or significant stenosis. The internal carotid arteries including the PE trace, cavernous and supraclinoid segments also widely patent. Some minimal calcified plaque seen along the cavernous carotid arteries. The vertebral arteries are visible throughout neither which appears more significantly dominant than the other. Basilar artery and posterior cerebral arteries are patent well. The visualized major branches of the [place] of [place] and distal cerebral vasculature unremarkable. No evidence of large aneurysm nor vascular malformation. Very minor Multilevel degenerative spondylosis of the cervical spine. Emphysematous changes seen in the upper lobes. Small bleb changes seen in the both lung apices right greater than left. Some minimal biapical pleural thickening left greater than right Minor mucoperiosteal inflammatory changes seen in the left maxillary antrum as well as a few ethmoid air cells extending into the frontal sinus. IMPRESSION: Minor partially calcified crescentic shaped plaque along the posterior aspect right carotid bifurcation without occlusion or significant stenosis. There are also some minor calcified plaque changes seen along the carotid siphons. See above discussion for additional details and findings.
--- NOTE | 2017-10-14 13:09 | CON ---
DATE: CARDIOLOGY CONSULTATION HISTORY OF PRESENT ILLNESS: The patient is a 72-year-old male who was brought in because of syncopal episode. The patient does not recall what happened to him except for the fact that he was on the floor in a assisted recovering from fainting and people around him. The patient did experience vomiting and diarrhea as well as abdominal discomfort prior to that. The patient most probably had heart problems, but he is unaware of any issue with his heart rate. The patient denies any chest pain . The patient was noted to be bradycardic on the monitor. SOCIAL HISTORY: The patient is a smoker. He lives in a assisted. He has been homeless for the past 3 months. MEDICATIONS: Rocephin 400 mg intravenously q.12 hours, Flagyl 500 mg intravenously q.8 hours, and Lovenox 40 mg subcu once a day. REVIEW OF SYSTEMS: No fever or chills. No retrosternal chest pain. The patient is experiencing productive cough. PHYSICAL EXAMINATION: GENERAL: The patient is an elderly male, who does not appear to be in acute distress. VITAL SIGNS: Blood pressure 155/77, heart rate 65, temperature 98.8, and respirations 16. HEENT: Normocephalic. CHEST: Bilateral rhonchi. HEART: S1 and S2 regular. ABDOMEN: Soft. EXTREMITIES: No edema. LABORATORY DATA: SMA-7: Sodium 143, potassium 4, chloride 105, CO2 26, glucose 110, BUN 21, and creatinine 0.9. Lipase is within normal limits. PT, PTT and INR are within normal limits. Hemoglobin and hematocrit are 13.1 and 39.6, white count 3.3 and platelet count 140,000. Urine drug screen is positive for cannabinoids. EKG revealed sinus rhythm, moderate voltage criteria for LVH. ASSESSMENT: 1. Syncopal episode. 2. Vomiting and diarrhea, rule out subsequent dehydration. 3. Sinus bradycardia. 4. Questionable presence of ventral and dorsal pancreatic duct consistent with pancreatic divisum on recent magnetic resonance cholangiopancreatography in . CONDITION: Continue current IV Flagyl. Continue telemetry monitoring. Obtain an echocardiogram. I will follow head and neck CT angio. Obtain TSH level. Lonnie Hernandez MD
--- NOTE | 2017-10-14 13:51 | CP.PCM.HP ---
<Tavon Reddy - Last Filed: 10/14/17 14:12> History of Present Illness - History of Present Illness History of Present Illness: 72 YO M w/ h/o HTN and fainting episodes secondary to dehydration was admitted after having a witnessed syncopal episode at the intermediate, states he "blacked out ". Patient has been having episodes of non billous non bloody vomiting. He states he believes itall started after he consumed a beef burger. He has also been having episodes of non bloody diarrhea. PMHx: HTN, fainting episodes secondary to dehydration PSHx: Denies Social hx: Daily alcohol usage with at least on shot of alcohol ENdo hx denies family hx denies Present on Admission - Present on Admission Any Indicators Present on Admission: No Past Patient History - Infectious Disease Hx of Infectious Diseases: None - Past Medical History & Family History Past Medical History?: No - Past Social History Alcohol: Occasional Drugs: Cannabis - MUSCULOSKELETAL/RHEUMATOLOGICAL Hx Falls: No - PSYCHIATRIC Hx Substance Use: No - SURGICAL HISTORY Hx Surgeries: No - ANESTHESIA Hx Anesthesia: No Hx Anesthesia Reactions: No Meds Allergies/Adverse Reactions: Allergies Allergy/AdvReac Type Severity Reaction Status Date / Time No Known Allergies Allergy Verified 08/08/17 10:26 Physical Exam - Constitutional Appears: No Acute Distress - Head Exam Head Exam: NORMAL INSPECTION - Eye Exam Eye Exam: Normal appearance - Respiratory Exam Respiratory Exam: Clear to Auscultation Bilateral, NORMAL BREATHING PATTERN. absent: Rhonchi, Wheezes - Cardiovascular Exam Cardiovascular Exam: REGULAR RHYTHM, +S1, +S2 - GI/Abdominal Exam GI & Abdominal Exam: Normal Bowel Sounds, Soft. absent: Tenderness - Extremities Exam Extremities exam: Positive for: normal inspection. Negative for: calf tenderness Results - Vital Signs Recent Vital Signs: Last Vital Signs Temp 98.8 F 10/14/17 05:01 Pulse 55 L 10/14/17 05:01 Resp 16 10/14/17 05:01 BP 155/77 H 10/14/17 05:01 Pulse Ox 100 10/14/17 05:01 - Labs Result Diagrams: 10/13/17 21:45 10/13/17 21:45 Labs: Laboratory Results - last 24 hr 10/13/17 10/13/17 10/13/17 20:46 21:45 21:45 WBC 3.3 L RBC 4.19 L Hgb 13.1 D Hct 39.6 MCV 94.5 H MCH 31.2 H MCHC 33.0 RDW 13.4 Plt Count 140 MPV 9.3 Neut % (Auto) 49.6 L Lymph % (Auto) 31.2 [place] % (Auto) 17.1 H Eos % (Auto) 0.8 Baso % (Auto) 1.3 Neut # (Auto) 1.7 L Lymph # (Auto) 1.0 [place] # (Auto) 0.6 Eos # (Auto) 0.0 Baso # (Auto) 0.0 PT INR APTT pO2 VBG pH VBG pCO2 VBG HCO3 VBG Total CO2 VBG O2 Sat (Calc) VBG Base Excess VBG Potassium Glucose Lactate FiO2 Sodium 143 Potassium 4.0 Chloride 105 Carbon Dioxide 26 Anion Gap 16 BUN 21 H Creatinine 0.9 Est GFR ( Amer) > 60 Est GFR (Non-Af Amer) > 60 Random Glucose 110 Calcium 9.3 Phosphorus 5.1 H Magnesium 2.0 Total Bilirubin 0.4 AST 61 H ALT 74 H D Alkaline Phosphatase 53 Troponin I < 0.0120 Total Protein 8.0 Albumin 4.2 Globulin 3.8 Albumin/Globulin Ratio 1.1 Lipase 135 Venous Blood Potassium Urine Opiates Screen Urine Methadone Screen Ur Barbiturates Screen Ur Phencyclidine Scrn Ur Amphetamines Screen U Benzodiazepines Scrn U Oth Cocaine Metabols U Cannabinoids Screen Alcohol, Quantitative < 10 Blood Type A POSITIVE Antibody Screen Negative BBK History Checked No verified bt 10/13/17 10/13/17 10/13/17 21:45 22:11 23:56 WBC RBC Hgb Hct MCV MCH MCHC RDW Plt Count MPV Neut % (Auto) Lymph % (Auto) [place] % (Auto) Eos % (Auto) Baso % (Auto) Neut # (Auto) Lymph # (Auto) [place] # (Auto) Eos # (Auto) Baso # (Auto) PT 11.4 INR 1.0 APTT 28.2 pO2 48 VBG pH 7.37 VBG pCO2 46 VBG HCO3 25.1 VBG Total CO2 28.0 VBG O2 Sat (Calc) 87.6 H VBG Base Excess 0.8 VBG Potassium 3.8 Glucose 110 Lactate 2.2 H FiO2 21.0 Sodium 139.0 Potassium Chloride 103.0 Carbon Dioxide Anion Gap BUN Creatinine Est GFR ( Amer) Est GFR (Non-Af Amer) Random Glucose Calcium Phosphorus Magnesium Total Bilirubin AST ALT Alkaline Phosphatase Troponin I Total Protein Albumin Globulin Albumin/Globulin Ratio Lipase Venous Blood Potassium 3.8 Urine Opiates Screen Negative Urine Methadone Screen Negative Ur Barbiturates Screen Negative Ur Phencyclidine Scrn Negative Ur Amphetamines Screen Negative U Benzodiazepines Scrn Negative U Oth Cocaine Metabols Negative U Cannabinoids Screen Positive H Alcohol, Quantitative Blood Type Antibody Screen BBK History Checked Assessment & Plan - Assessment and Plan (Free Text) Assessment: 72 YO M w/ h/o HTN presents to the ER with complaints syncopal eppisode with nausea, vomiting diarrhea most likely secondary to gastroenteritis - GI consulted: 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 - Neurology consulted : EEG ordered - Cardiology consulted: Echo ordered - F/U with autoimmune and viral serologies, abd u/s, stool studies - C/W IV antibiotics - C/W IV fluids - DVT prophylaxis: Lovenox <Jens Rivera - Last Filed: 10/18/17 16:30> Results - Vital Signs Recent Vital Signs: Last Vital Signs Temp 98.2 F 10/17/17 13:03 Pulse 69 10/17/17 13:03 Resp 20 10/17/17 13:03 BP 131/85 10/17/17 13:03 Pulse Ox 93 L 10/17/17 13:03 - Labs Result Diagrams: 10/16/17 08:08 10/16/17 08:08 Labs: Laboratory Results - last 24 hr 10/14/17 10/14/17 12:03 12:03 Hepatitis A IgM Ab Negative Hepatitis C Antibody Reactive Assessment & Plan - Assessment and Plan (Free Text) Assessment: Patient was personally seen and examined by me in rounds with residents. Available labs and diagnostic data reviewed. Case, Patient's condition and management plan discussed with residents in rounds. Agree with resident's documentation. Plan: As ordered. Jens Rivera MD
--- NOTE | 2017-10-14 14:28 | US ---
HISTORY: elevated LFTs COMPARISON: 08/08/2017 CT abdomen and pelvis. 08/09/2017 MRCP. TECHNIQUE: Sonographic evaluation of the right upper quadrant of the abdomen. FINDINGS: LIVER: Measures 15.8 cm in length. Patent portal vein. Portal venous flow: Hepatopetal. Unremarkeable echogenicity of the liver parenchyma. No mass. No intrahepatic bile duct dilatation. GALLBLADDER: Multiple echogenic foci within the gallbladder likely gallbladder polyps the preponderance of which are 8 mm or less. Gallstones are not identified. COMMON BILE DUCT: Measures 8.7 mm. Dilated common bile duct without intrinsic or extrinsic etiology. No intrahepatic bile duct dilatation. PANCREAS: Unremarkable as visualized. No mass. Dilated pancreatic duct 4.4 mm. This is approximately 1 mm greater than the upper threshold for normal pancreatic duct (3.4 mm) RIGHT KIDNEY: Measures 4.5 x 3.6 x 10.4 cm in length. Normal echogenicity. No calculus, mass, or hydronephrosis. AORTA: No aneurysmal dilatation. IVC: Unremarkable. OTHER FINDINGS: None . IMPRESSION: Dilated pancreatic duct and common bile duct without explanation/ apparent etiology. Review of recent cross-sectional studies with particular attention directed to the biliary system and common bile duct revealed similar findings of bile duct dilatation, pancreatic duct dilatation without focal abnormality. No acute findings. Incidental finding(s): Multiple gallbladder polyps.
[2017-10-14] MEDS: Enoxaparin 40 mg Syringe SC SCH (16:01)
[2017-10-14 16:47] LABS: HEPATITIS B SURFACE AG Negative (NEGATIVE)
[2017-10-14 16:52] LABS: HEPATITIS B CORE AB NEGATIVE (NEGATIVE)
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
[2017-10-14] MEDS: Ciprofloxacin 200mg/100ml D5W 100 ML IVPB SCH (20:55)
[2017-10-15] MEDS: metroNIDAZOLE 500mg/100ml NS 100 ML IVPB SCH ×3 (01:07→17:46)
[2017-10-15] MEDS ORDERED: NIFEdipine 30 mg ER Tab PO SCH (06:25)
[2017-10-15 07:57] LABS: CERULOPLASMIN 33 mg/dL (18-36)
--- NOTE | 2017-10-15 08:41 | PN ---
DATE: 10/15/2017 SUBJECTIVE: The patient is seen and examined. Interim events noted. Consults noted and appreciated. Gastroenterology consult and intervention noted and appreciated. Neurology and Cardiology consult noted and appreciated. The patient remains in progressive care unit on telemetry monitoring. The patient feels okay. Denies any chest pain, shortness of breath, dizziness or loss of consciousness. No abdominal pain, diarrhea, nausea or vomiting. PHYSICAL EXAMINATION: GENERAL: The patient is in no acute distress. VITAL SIGNS: Stable. Temperature 98.2, pulse , respirations 18, and blood pressure 169/80. HEART: S1 and S2, normal and regular. LUNGS: Good bilateral air exchange. ABDOMEN: Soft and nontender. EXTREMITIES: No edema. No calf swelling. No tenderness. No acute ischemia. ERP PROJECT MANAGER: Essentially unchanged. DIAGNOSTIC DATA: Available diagnostic data reviewed. Toxicology is positive for cannabinoids. is negative. CBC and CMP is acceptable. Overall, the patient is clinically stable and improving. Plan as ordered. Jens Rivera MD
[2017-10-15] MEDS ORDERED: Enoxaparin 40 mg Syringe SC SCH (09:00)
--- NOTE | 2017-10-15 09:02 | CARD ---
APPROVED REPORT EXAM: Two-dimensional and M-mode echocardiogram with Doppler and color Doppler. Other Information Quality : AverageRhythm : INDICATION Syncope 2D DIMENSIONS IVSd0.99 (0.7-1.1cm)LVDd3.82 (3.9-5.9cm) LVOT Diameter2.01 (1.8-2.4cm)PWd1.11 (0.7-1.1cm) IVSs0.89 (0.8-1.2cm)LVDs2.92 (2.5-4.0cm) FS (%) 23.5 %PWs1.24 (0.8-1.2cm) M-Mode DIMENSIONS Left Atrium (MM)3.85 (2.5-4.0cm)IVSd0.91 (0.7-1.1cm) Aortic Root3.00 (2.2-3.7cm)LVDd3.91 (4.0-5.6cm) Aortic Cusp Exc.1.85 (1.5-2.0cm)PWd1.24 (0.7-1.1cm) IVSs1.38 cmFS (%) 32 % LVDs2.65 (2.0-3.8cm)PWs1.65 cm Mitral Valve MV E Hcjmptmk45.0cm/sMV DECEL [id number] A Zxvvyelj19.5cm/s MV [id number]/A ratio1.3MVA (PHT)4.82cm2 TDI Lateral E' Peak V8.72cm/sMedial E' Peak V7.74cm/sE/Lateral E'10.0 E/Medial E'11.2 Pulmonary Valve PV Peak Nhoixpec21.1cm/s Tricuspid Valve TR Peak Ininwxol090ok/sRAP [id number] Peak Gr.20mmHg RLLE24inCp LEFT VENTRICLE The left ventricle is normal size. There is normal left ventricular wall thickness. Left ventricle systolic function is normal. The Ejection Fraction is 60-65%. There is normal LV segmental wall motion. Transmitral Doppler flow pattern is Grade II-pseudonormal filling dynamics. RIGHT VENTRICLE The right ventricle is normal size. There is normal right ventricular wall thickness. The right ventricular systolic function is normal. ATRIA The left atrium size is normal. The right atrium size is normal. AORTIC VALVE The aortic valve is normal in structure. No aortic regurgitation is present. There is no aortic valvular stenosis. MITRAL VALVE The mitral valve is normal in structure. There is no evidence of mitral valve prolapse. There is no mitral valve stenosis. Mitral regurgitation is mild. TRICUSPID VALVE The tricuspid valve is normal in structure. There is mild tricuspid regurgitation. Right ventricular systolic pressure is estimated at 31 mmHg. There is mild pulmonary hypertension. PULMONIC VALVE The pulmonary valve is normal in structure. There is no pulmonic valvular regurgitation. GREAT VESSELS The aortic root is normal in size. The IVC is normal in size and collapses >50% with inspiration. PERICARDIAL EFFUSION The pericardium appears normal. <Conclusion> The left ventricle is normal size. There is normal left ventricular wall thickness. There is normal LV segmental wall motion. Left ventricle systolic function is normal. The Ejection Fraction is 60-65%. Transmitral Doppler flow pattern is Grade II-pseudonormal filling dynamics.
[2017-10-15] MEDS ORDERED: NIFEdipine 30 mg ER Tab PO STA (09:21)
[2017-10-15] MEDS: Enoxaparin 40 mg Syringe SC SCH (09:33)
[2017-10-15] MEDS: Ciprofloxacin 200mg/100ml D5W 100 ML IVPB SCH ×2 (09:34→21:46)
--- NOTE | 2017-10-15 18:55 | PN ---
DATE: SUBJECTIVE: The patient complains of abdominal pain. He denies any chest pain. No reported significant bradycardia and the lowest heart rate was in the upper 50s. PHYSICAL EXAMINATION: VITAL SIGNS: Blood pressure 156/87, heart rate 61, temperature 98.5 and respirations 19. HEENT: Normocephalic. CHEST: Clear. HEART: S1 and S2 regular. EXTREMITIES: No edema. LABORATORY DATA: Hepatitis profile is negative. Echocardiograph study revealed ejection fraction in the range of 60% to 65%. Abdominal ultrasound; dilated pancreatic duct and common bile duct without explanation/apparent etiology. Review of recent cross-sectional studies with particular attention directed to the system and common bile duct revealed similar findings of bile duct dilatation. No acute findings. CT angio of the head and neck minor partial calcified crescentic shaped plaque along the posterior aspect of right carotid bifurcation without occlusion or significant stenosis. ASSESSMENT: 1. Syncopal episode. 2. Cannabinoid abuse. 3. Abdominal pain with dilated common bile duct as well as pancreatic duct. 4. Mild sinus bradycardia. RECOMMENDATIONS: Continue current IV Flagyl and IV Cipro. Continue Procardia XL 60 mg once a day. Obtain TSH level. Lonnie Hernandez MD
[2017-10-16] MEDS: metroNIDAZOLE 500mg/100ml NS 100 ML IVPB SCH ×3 (01:49→16:31)
[2017-10-16 08:49] LABS: HEMOGLOBIN 13.8 g/dL (12.0-18.0); MEAN CELL VOLUME 94.2 fl (80.0-94.0); MEAN CORPUSCULAR HEMOGLOBIN 31.1 pg (27.0-31.0); RBC 4.45 Mil/uL (4.40-5.90); RED CELL DISTRIBUTION WIDTH 13.5 % (11.5-14.5); WHITE BLOOD COUNT 2.7 K/uL (4.8-10.8)
[2017-10-16 09:09] LABS: ALBUMIN 4.1 g/dL (3.5-5.0); ALT/SGPT 56 U/L (21-72); AST/SGOT 55 U/L (17-59); BLOOD UREA NITROGEN 10 mg/dl (9-20); CALCIUM 9.4 mg/dL (8.4-10.2); GFR AFRICAN-AMERICAN > 60; GFR NON-AFRICAN AMERICAN > 60
[2017-10-16] MEDS: Enoxaparin 40 mg Syringe SC SCH (10:21)
[2017-10-16] MEDS: Ciprofloxacin 200mg/100ml D5W 100 ML IVPB SCH ×2 (10:21→21:09)
[2017-10-16] MEDS: NIFEdipine 60 mg ER Tab PO SCH (10:22)
--- NOTE | 2017-10-16 10:45 | CP.PCM.PN ---
Subjective - Date & Time of Evaluation Date of Evaluation: 10/16/17 Time of Evaluation: 10:44 - Subjective Subjective: Mr. Ibarra was seen and examined at the bedside. He is alert, oriented in all spheres. He is able to answer questions and follow simple commands. He denies any headache, dizziness, lightheadedness, blurred vision. He further states that having a regular food makes a big difference with his strength. CTA of the head showed minor partially calcified cresentric shaped plaque along the posterior aspect right carotid bifurcation without occlusion or stenosis. There are also some minor calcified plaque changes seen along the carotid siphons.There was no untoward events overnight. Objective - Vital Signs/Intake and Output Vital Signs (last 24 hours): Temp Pulse Resp BP Pulse Ox 98.5 F 63 18 160/85 H 100 10/16/17 08:24 10/16/17 10:22 10/16/17 08:24 10/16/17 10:22 10/16/17 08:24 - Medications Medications: Current Medications Enoxaparin Sodium (Lovenox) 40 mg SC DAILY L[facility]Y PRN Reason: Protocol Last Admin: 10/16/17 10:21 Dose: 40 mg Metronidazole (Flagyl 500mg/100ml Ns) 100 mls @ 100 mls/hr IVPB Q8 [facility] PRN Reason: Protocol Last Admin: 10/16/17 10:21 Dose: 100 mls/hr Ciprofloxacin (Cipro 200mg/100ml D5w) 100 mls @ 100 mls/hr IVPB Q12 [facility] Last Admin: 10/16/17 10:21 Dose: 100 mls/hr Nifedipine (Procardia Xl) 60 mg PO DAILY [facility] Last Admin: 10/16/17 10:22 Dose: 60 mg - Labs Labs: 10/16/17 08:08 10/16/17 08:08 PT 11.4 Seconds (9.8-13.1) 10/13/17 21:45 INR 1.0 (0.9-1.2) 10/13/17 21:45 APTT 28.2 Seconds (25.6-37.1) 10/13/17 21:45 - Constitutional Appears: No Acute Distress - Head Exam Head Exam: NORMAL INSPECTION - Neurological Exam Neurological Exam: Alert, Awake, Oriented x3 Neuro motor strength exam: Left Upper Extremity: 5, Right Upper Extremity: 5, Left Lower Extremity: 5, Right Lower Extremity: 5 Additional comments: AOx 3, able to follow simple commands. Assessment and Plan (1) Syncope Assessment & Plan: Case discussed with Dr. Quarles, continue all current medical regimen, Recommend aspirin 81 mg PO daily and treat any underlying cause such as dehydration. Status: Acute
--- NOTE | 2017-10-16 11:14 | PN ---
DATE: 10/16/2017 SUBJECTIVE: The patient is seen and examined. Interim events noted. The patient remains in Progressive Care Unit. The patient feels okay. Denies any dizziness, loss of consciousness, chest pain or shortness of breath. No specific issue reported by nursing staff. PHYSICAL EXAMINATION: GENERAL: The patient is in no acute distress. VITAL SIGNS: Stable. HEART: S1 and S2, normal and regular. LUNGS: Good bilateral air exchange. ABDOMEN: Soft and nontender. EXTREMITIES: No edema. No calf swelling. No tenderness. No acute ischemia. CENTRAL NERVOUS SYSTEM: Essentially unchanged. DIAGNOSTIC DATA: Available diagnostic data reviewed. Telemetry monitoring does not show significant arrhythmias. ASSESSMENT AND PLAN: Overall, the patient's general medical condition is stable. Plan as ordered. Jens Rivera MD
--- NOTE | 2017-10-16 17:09 | PN ---
DATE: SUBJECTIVE: The patient denies any dizziness. PHYSICAL EXAMINATION: VITAL SIGNS: Blood pressure 157/87, heart rate 60, temperature 98.8, and respirations 18. HEENT: Normocephalic. CHEST: Clear. HEART: S1 and S2 regular. EXTREMITIES: No edema. ASSESSMENT: 1. Syncopal episode. 2. Cannabinoid abuse. 3. Abdominal pain with dilated common bile duct as well as pancreatic duct. RECOMMENDATIONS: Continue aspirin, Procardia XL, and subcutaneous Lovenox. Continue IV Cipro and IV Flagyl. Lonnie Hernandez MD
[2017-10-17] MEDS: metroNIDAZOLE 500mg/100ml NS 100 ML IVPB SCH ×3 (00:53→09:02)
[2017-10-17 08:23] VITALS: RESP 20
[2017-10-17] MEDS: Enoxaparin 40 mg Syringe SC SCH (08:44)
[2017-10-17] MEDS: NIFEdipine 60 mg ER Tab PO SCH (08:45)
[2017-10-17] MEDS: Ciprofloxacin 200mg/100ml D5W 100 ML IVPB SCH (10:01)
--- NOTE | 2017-10-17 10:19 | CP.PCM.PN ---
Subjective - Date & Time of Evaluation Date of Evaluation: 10/17/17 Time of Evaluation: 10:16 - Subjective Subjective: Mr. Ibarra was seen and examined at the bedside. He is alert, oriented. He denies any dizziness, lightheadedness, nausea, or vomiting. He claims that he has unsteady gait especially with changing position. He further states that he still has episode of diarrhea, but no vomiting. Currently, he is on antibiotic therapy. Encourage patient to increase PO liquid intake. There Objective - Vital Signs/Intake and Output Vital Signs (last 24 hours): Temp Pulse Resp BP Pulse Ox 98.3 F 62 20 158/91 H 97 10/17/17 08:00 10/17/17 08:45 10/17/17 08:00 10/17/17 08:45 10/17/17 08:00 - Medications Medications: Current Medications Aspirin (Aspirin Chewable) 81 mg PO DAILY [facility] Last Admin: 10/17/17 08:44 Dose: 81 mg Metronidazole (Flagyl 500mg/100ml Ns) 100 mls @ 100 mls/hr IVPB Q8 [facility] PRN Reason: Protocol Last Admin: 10/17/17 09:02 Dose: 100 mls/hr Ciprofloxacin (Cipro 200mg/100ml D5w) 100 mls @ 100 mls/hr IVPB Q12 [facility] Last Admin: 10/17/17 10:01 Dose: 100 mls/hr Nifedipine (Procardia Xl) 60 mg PO DAILY [facility] Last Admin: 10/17/17 08:45 Dose: 60 mg - Labs Labs: 10/16/17 08:08 10/16/17 08:08 PT 11.4 Seconds (9.8-13.1) 10/13/17 21:45 INR 1.0 (0.9-1.2) 10/13/17 21:45 APTT 28.2 Seconds (25.6-37.1) 10/13/17 21:45 - Constitutional Appears: No Acute Distress - Head Exam Head Exam: NORMAL INSPECTION - Neurological Exam Neurological Exam: Alert, Awake, Oriented x3 Neuro motor strength exam: Left Upper Extremity: 5, Right Upper Extremity: 5, Left Lower Extremity: 5, Right Lower Extremity: 5 Assessment and Plan (1) Syncope Assessment & Plan: Case discussed with Dr. Adhikari, continue all medical and physical regimens. Recommend treat any underlying infection and dehydration. Status: Acute
[2017-10-17 13:05] VITALS: BP 131/85; PULSE 69; TEMP 98.2; O2SAT 93
--- NOTE | 2017-10-17 13:24 | PN ---
DATE: SUBJECTIVE: The patient denies any shortness of breath or dizziness. PHYSICAL EXAMINATION: GENERAL: Blood pressure 152/91, heart rate 62, temperature 98.3, and respirations 20. HEENT: Normocephalic. CHEST: Clear. HEART: S1 and S2 regular. EXTREMITIES: No edema. ASSESSMENT: 1. Syncopal episode. 2. Uncontrolled hypertension. 3. Dilated common bile duct as well as pancreatic duct. RECOMMENDATIONS: Continue aspirin 81 mg once a day, IV Cipro and IV Flagyl. Nifedipine XL was increased to 60 mg today for better blood pressure control. Lonnie Hernandez MD
--- NOTE | 2017-10-18 08:59 | PN ---
DATE: 10/17/2017 SUBJECTIVE: The patient is seen and examined. Interim events noted. The patient remains in Progressive Care Unit on Telemetry monitoring. Feels much better. No chest pain and no shortness of breath. No abdominal pain. Tolerating food very well. Moving bladder and bowels very well. No specific complaint and no specific issue reported by nursing staff. PHYSICAL EXAMINATION: GENERAL: The patient is in no acute distress. VITAL SIGNS: Stable. HEART: S1 and S2 normal and regular. LUNGS: Good bilateral air exchange. GASTROINTESTINAL: Abdomen is soft,and nontender. EXTREMITIES: No edema and no calf swelling. No tenderness. No acute ischemia. CENTRAL NERVOUS SYSTEM: Exam is essentially unchanged. DIAGNOSTIC DATA: Available diagnostic data reviewed. Telemetry monitoring does not show significant arrhythmias. IMPRESSION AND PLAN: Overall, the patient's general medical condition is stable. Plan as ordered. Jens Rivera MD
== END 2017-10-17 15:05 | disposition home or self-care (01) | DRG 641 ==
LOC: H.ER 19:49 → OBSVTOIN 23:38 → UNDOADMOB 23:38 → H.ERHOLD 23:38 → INTOOBSV 23:38 → H.TEL 10-14 16:22 → H.ERHOLD 10-14 16:22 → H.TEL 10-16 17:45 → OBSVTOIN 10-16 21:49 → H.TEL 10-16 21:49
PROVIDERS: ADMIT Internal Medicine; ATTEND Internal Medicine
DX: E86.0 Dehydration (principal); K52.9 Noninfective gastroenteritis and colitis, unspecified; K83.8 Other specified diseases of biliary tract; R00.1 Bradycardia, unspecified; F17.200 Nicotine dependence, unspecified, uncomplicated; F45.22 Body dysmorphic disorder; I10 Essential (primary) hypertension; Z59.0 Homelessness; F10.10 Alcohol abuse, uncomplicated

== ENCOUNTER 2019-01-16 16:14 | Inpatient (IN) | payer MEDICARE, OTHER ==
--- NOTE | 2019-01-16 18:47 | ED PDOC ---
HPI: Chest Pain Time Seen by Provider: 01/16/19 17:14 Chief Complaint (Nursing): Chest Pain History Per: Patient Additional Complaint(s): Pt. states for the past 1.5 weeks he's had epigastric abdominal pain radiating to his chest associated with SOB. He went to his PMD today who advised him to come to ED for further evaluation as his BP in the office was 160/110 and he has not been taking his BP meds. Pain has been constant. Denies N/V/D, hematemesis, cough, hemoptysis, fever, chills, constipation, leg swelling or pain. Last BM was today and was normal. PMD: Rula Past Medical History Reviewed: Historical Data, Nursing Documentation, Vital Signs Vital Signs: Last Vital Signs Temp 99.4 F 01/16/19 16:16 Pulse 101 H 01/16/19 16:16 Resp 16 01/16/19 16:16 BP 143/96 H 01/16/19 16:16 Pulse Ox 98 01/16/19 16:16 Primary Care Provider: Barber Angel - Medical History PMH: Gastritis, HTN Denies: Chronic Kidney Disease - Family History Family History: States: Unknown Family Hx - Home Medications Home Medications: Ambulatory Orders Medication Instructions Recorded Omeprazole 1 tab PO DAILY 10/26/18 Pantoprazole [Protonix EC Tab] 1 tab PO DAILY 10/26/18 amLODIPine [Norvasc] 1 tab PO DAILY 10/26/18 - Allergies Allergies/Adverse Reactions: Allergies Allergy/AdvReac Type Severity Reaction Status Date / Time No Known Allergies Allergy Verified 01/16/19 16:16 CLAY Risk Score for UA/NSTEMI - CLAY Risk Score Age > 64: YES 3 or more CAD Risk Factors: NO Known CAD (Stenosis greater than 50%): NO Aspirin use in past 7 days: YES Severe Angina: NO EKG ST changes greater than 0.5mm: NO Positive Cardiac Marker: NO CLAY Score: 2 Risk %: 8% Review of Systems ROS Statement: Except As Marked, All Systems Reviewed And Found Negative Cardiovascular: Positive for: Chest Pain Physical Exam - Physical Exam Appears: Positive for: Well, Non-toxic, No Acute Distress Skin: Positive for: Normal Color, Warm. Negative for: Rash Eye Exam: Positive for: Normal appearance Cardiovascular/Chest: Positive for: Regular Rate, Rhythm. Negative for: Murmur, Tachycardia Respiratory: Positive for: Normal Breath Sounds Gastrointestinal/Abdominal: Positive for: Soft. Negative for: Tenderness, Distended Extremity: Negative for: Calf Tenderness (b/l) Neurological/Psych: Positive for: Awake, Alert, Oriented (x3) - Laboratory Results Result Diagrams: 01/16/19 18:40 01/16/19 18:40 - ECG ECG: Positive for: Interpreted By Me ECG Rhythm: Positive for: Sinus Rhythm. Negative for: ST/T Changes Rate: 67 O2 Sat by Pulse Oximetry: 98 - Radiology X-Ray: Interpreted by Me (CXR) X-Ray Interpretation: No Acute Disease - Progress ED Course And Treament: Labs, pepcid 20mg IV, EKG ordered. Pt. placed on security monitor. 1714 On re-evaluation, pt. c/o feeling hungry. On security monitor HR is SR at 41 bpm. Pt. in no distress. Denies dizziness, SOB. Reports 3 years ago he had a "heart attack" and was informed in the past that he had a low heart rate but never received meds or a pacemaker but did see a land resource specialist at that time. Pt. is uncertain of land resource specialist's name. Case d/w Dr. Rangel who agrees with plan and care. Pacer pads placed on patient. Repeat EKG Sinus tamra at [address]-T wave changes. Medical Decision Making Medical Decision Making: Case d/w Dr. Ny who agrees with plan and care. Case d/w Dr. Rivera and arrangements made for 23 hr observation. Disposition - Clinical Impression Clinical Impression: Chest pain, Bradycardia - Patient ED Disposition Is Patient to be Admitted: Yes - Disposition Disposition Time: 19:05 Condition: FAIR Forms: [employer] (Latvian)
[2019-01-16 18:54] LABS: BASO % 0.9 % (0.0-2.0); EOS # 0.1 K/uL (0.0-0.7); EOS % 1.5 % (0.0-4.0); HEMOGLOBIN 12.8 g/dL (12.0-18.0); LYMPH # 1.6 K/uL (1.0-4.3); LYMPH % 46.4 % (20.0-40.0); MEAN CELL VOLUME 95.5 fl (80.0-94.0); MEAN CORPUSCULAR HEMOGLOBIN 31.8 pg (27.0-31.0); MEAN CORPUSCULAR HGB CONC 33.2 g/dL (33.0-37.0); MEAN PLATELET VOLUME 9.7 fl (7.2-11.7); MONO # 0.4 K/uL (0.0-0.8); MONO % 12.4 % (0.0-10.0); NEUT # 1.4 K/uL (1.8-7.0); NEUT % 38.8 % (50.0-75.0); NRBC % 0.3 % (0.0-0.0); RBC 4.02 Mil/uL (4.40-5.90); WHITE BLOOD COUNT 3.5 K/uL (4.8-10.8)
[2019-01-16 19:02] LABS: ALB/GLOB RATIO 1.1 (1.0-2.1); ALBUMIN 4.1 g/dL (3.5-5.0); ALT/SGPT 82 U/L (21-72); AST/SGOT 105 U/L (17-59); BLOOD UREA NITROGEN 14 mg/dl (9-20); GFR NON-AFRICAN AMERICAN > 60; LIPASE 75 U/L (23-300)
[2019-01-16 19:04] LABS: SQUAMOUS EPITHIAL < 1 /hpf (0-5); URINE BACTERIA RARE (<OCC); URINE BILIRUBIN NEGATIVE (NEGATIVE); URINE BLOOD NEGATIVE (NEGATIVE); URINE CLARITY SLIGHTY-CLOUDY (Clear); URINE COLOR YELLOW (YELLOW); URINE GLUCOSE (UA) NEG (NEGATIVE); URINE LEUKOCYTE ESTERASE NEG Leu/uL (Negative); URINE PROTEIN 30 mg/dL (NEGATIVE)
[2019-01-16 19:05] LABS: URINE UROBILINOGEN 0.2 mg/dL (0.2-1.0)
[2019-01-16 19:16] LABS: B-TYPE NATRIURETIC PEPTIDE 822 pg/ml (0-900)
[2019-01-16 19:53] LABS: BARBITURATES, UR NEGATIVE (NEGATIVE); BENZODIAZEPINES, UR NEGATIVE (NEGATIVE); OPIATES, UR NEGATIVE (NEGATIVE); PHENCYCLIDINE, UR NEGATIVE (NEGATIVE)
[2019-01-17] MEDS ORDERED: DOPamine 400mg/250ml D5W 400 MG/250 ML BAG IV ONE (05:20)
--- NOTE | 2019-01-17 05:25 | CP.PCM.CON ---
History of Present Illness - History of Present Illness History of Present Illness: Reason for consult/transfer to ICU: symptomatic bradycardia Brief HPI: This is a 73 y/o male with history of CAD and 'low heart rates' who was admitted from ER today after being referred there for elevated BP of 160/110. This evening patient became bradycardic again to the 30-40s. He complained of dizziness with the low heart rates. Denied CP/SOB. Dizziness was persistent so patient was transferred to ICU for further monitoring and for IV dopamine. ROS: negative other than HPI MHx: HTN, gastritis, CAD, bradycardia SHx: No major surgeries Fam/Soc Hx: No relevant findings Past Patient History - Infectious Disease Hx of Infectious Diseases: None - Past Medical History & Family History Past Medical History?: Yes - Past Social History Smoking Status: Light Smoker < 10 Cigarettes Daily - CARDIAC Hx Hypertension: Yes - PULMONARY Hx Respiratory Disorders: No - NEUROLOGICAL Hx Neurological Disorder: No - HEENT Hx HEENT Problems: No - RENAL Hx Chronic Kidney Disease: No - ENDOCRINE/METABOLIC Hx Endocrine Disorders: No - HEMATOLOGICAL/ONCOLOGICAL Hx Blood Disorders: No - INTEGUMENTARY Hx Dermatological Problems: No - MUSCULOSKELETAL/RHEUMATOLOGICAL Hx Musculoskeletal Disorders: No Hx Falls: No - GASTROINTESTINAL Hx Gastritis: Yes - GENITOURINARY/GYNECOLOGICAL Hx Genitourinary Disorders: No - PSYCHIATRIC Hx Psychophysiologic Disorder: No Hx Substance Use: Yes (PT DENIES) - SURGICAL HISTORY Hx Surgeries: Yes Hx Orthopedic Surgery: Yes (GEE FOOT SURGERY, LT LEG SX, HAND SURGERY) - ANESTHESIA Hx Anesthesia: Yes Hx Anesthesia Reactions: Yes ("HARD TO WAKE UP") Hx Malignant Hyperthermia: No Meds Allergies/Adverse Reactions: Allergies Allergy/AdvReac Type Severity Reaction Status Date / Time No Known Allergies Allergy Verified 01/16/19 16:16 - Medications Medications: Current Medications Dopamine HCl/Dextrose (Dopamine 400mg/250ml D5w) 400 mg in 250 mls @ 5.188 mls/hr IV .Q24H ONE; Protocol Stop: 01/18/19 05:19 Physical Exam - Constitutional Appears: No Acute Distress - Head Exam Head Exam: ATRAUMATIC, NORMOCEPHALIC - Eye Exam Eye Exam: EOMI, PERRL - ENT Exam ENT Exam: Mucous Membranes Moist - Neck Exam Neck exam: Positive for: Full Rom - Respiratory Exam Respiratory Exam: Clear to Auscultation Bilateral, NORMAL BREATHING PATTERN - Cardiovascular Exam Cardiovascular Exam: Bradycardia, REGULAR RHYTHM, +S1, +S2 - GI/Abdominal Exam GI & Abdominal Exam: Normal Bowel Sounds, Soft - Extremities Exam Extremities exam: Positive for: full ROM, normal inspection - Neurological Exam Neurological exam: Alert, CN II-XII Intact, Oriented x3 - Psychiatric Exam Psychiatric exam: Normal Affect, Normal Mood - Skin Skin Exam: Dry, Warm Results - Vital Signs Recent Vital Signs: Last Vital Signs Temp 99.4 F 01/16/19 16:16 Pulse 42 L 01/16/19 23:05 Resp 17 01/16/19 23:05 BP 158/86 H 01/16/19 23:05 Pulse Ox 99 01/16/19 22:45 - Labs Result Diagrams: 01/16/19 18:40 01/16/19 18:40 Labs: Laboratory Results - last 24 hr 01/16/19 01/16/19 01/16/19 18:40 18:40 18:58 WBC 3.5 L RBC 4.02 L Hgb 12.8 Hct 38.4 MCV 95.5 H MCH 31.8 H MCHC 33.2 RDW 14.0 Plt Count 156 MPV 9.7 Neut % (Auto) 38.8 L Lymph % (Auto) 46.4 H [place] % (Auto) 12.4 H Eos % (Auto) 1.5 Baso % (Auto) 0.9 Neut # (Auto) 1.4 L Lymph # (Auto) 1.6 [place] # (Auto) 0.4 Eos # (Auto) 0.1 Baso # (Auto) 0.0 Sodium 140 Potassium 4.1 Chloride 106 Carbon Dioxide 28 Anion Gap 10 BUN 14 Creatinine 0.6 L Est GFR ( Amer) > 60 Est GFR (Non-Af Amer) > 60 Random Glucose 94 Calcium 9.0 Total Bilirubin 0.4 AST 105 H D ALT 82 H D Alkaline Phosphatase 53 Troponin I < 0.0120 NT-Pro-B Natriuret Pep 822 Total Protein 7.7 Albumin 4.1 Globulin 3.6 Albumin/Globulin Ratio 1.1 Lipase 75 Urine Color Urine Clarity Urine pH Ur Specific [place] Urine Protein Urine Glucose (UA) Urine Ketones Urine Blood Urine Nitrate Urine Bilirubin Urine Urobilinogen Ur Leukocyte Esterase Urine RBC (Auto) Urine Microscopic WBC Ur Squamous Epith Cells Urine Bacteria Urine Opiates Screen Negative Urine Methadone Screen Negative Ur Barbiturates Screen Negative Ur Phencyclidine Scrn Negative Ur Amphetamines Screen Negative U Benzodiazepines Scrn Negative U Oth Cocaine Metabols Negative U Cannabinoids Screen Positive H 01/16/19 01/17/19 18:58 01:00 WBC RBC Hgb Hct MCV MCH MCHC RDW Plt Count MPV Neut % (Auto) Lymph % (Auto) [place] % (Auto) Eos % (Auto) Baso % (Auto) Neut # (Auto) Lymph # (Auto) [place] # (Auto) Eos # (Auto) Baso # (Auto) Sodium Potassium Chloride Carbon Dioxide Anion Gap BUN Creatinine Est GFR ( Amer) Est GFR (Non-Af Amer) Random Glucose Calcium Total Bilirubin AST ALT Alkaline Phosphatase Troponin I < 0.0120 NT-Pro-B Natriuret Pep Total Protein Albumin Globulin Albumin/Globulin Ratio Lipase Urine Color Yellow Urine Clarity Slighty-cloudy Urine pH 6.0 Ur Specific [place] 1.024 Urine Protein 30 Urine Glucose (UA) Neg Urine Ketones Negative Urine Blood Negative Urine Nitrate Negative Urine Bilirubin Negative Urine Urobilinogen 0.2 Ur Leukocyte Esterase Neg Urine RBC (Auto) 1 Urine Microscopic WBC 1 Ur Squamous Epith Cells < 1 Urine Bacteria Rare Urine Opiates Screen Urine Methadone Screen Ur Barbiturates Screen Ur Phencyclidine Scrn Ur Amphetamines Screen U Benzodiazepines Scrn U Oth Cocaine Metabols U Cannabinoids Screen Assessment & Plan (1) Symptomatic bradycardia Assessment and Plan: Symptomatic bradycardia -Cont serial troponins -Will start on low dose dopamine to improve HR since he has been having persistent bradycardia Status: Acute
[2019-01-17 05:55] VITALS: BMI 21.4
[2019-01-17 06:44] LABS: HEMOGLOBIN 12.7 g/dL (12.0-18.0); MEAN CELL VOLUME 94.7 fl (80.0-94.0); MEAN CORPUSCULAR HEMOGLOBIN 31.9 pg (27.0-31.0); MEAN CORPUSCULAR HGB CONC 33.7 g/dL (33.0-37.0); RBC 3.97 Mil/uL (4.40-5.90); WHITE BLOOD COUNT 2.8 K/uL (4.8-10.8)
[2019-01-17 06:56] LABS: BLOOD UREA NITROGEN 12 mg/dl (9-20); CALCIUM 8.8 mg/dL (8.4-10.2); GFR NON-AFRICAN AMERICAN > 60
--- NOTE | 2019-01-17 07:54 | CP.PCM.HP ---
History of Present Illness - History of Present Illness History of Present Illness: This is a 73 y/o male with history of CAD, HTN and bradycardia admitted to [facility] for evaluation and treatment of Epigastric pain radiating to chest and bradycardia. As per patient he has been feeling epigastric pain on and off, he was sent here by PMD after founf to have elevated BP. Patient reports mild dizziness, but denies any fever, vomting, diarrhea, dysuria, SOB, weakness or numbness/tingling. MHx: HTN, gastritis, CAD, bradycardia SHx: Denies FH: Denies SH: Reports daily alcohol use, + marijuana use Present on Admission - Present on Admission Any Indicators Present on Admission: No Review of Systems - Constitutional Constitutional: absent: Excessive Sweating, Fatigue, Fever, Headache, Lethargy, Weakness - EENT Eyes: absent: Blurred Vision, Change in Vision, Irritation Ears: Dizziness. absent: Disequilibrium Nose/Mouth/Throat: absent: Nasal Congestion - Cardiovascular Cardiovascular: Chest Pain - Respiratory Respiratory: absent: Cough, Dyspnea, Hemoptysis, Dyspnea on Exertion - Gastrointestinal Gastrointestinal: Abdominal Pain, Heartburn, Nausea. absent: Bloating, D iarrhea, Hematemesis, Hematochezia, Vomiting - Genitourinary Genitourinary: absent: Change in Urinary Stream, Dysuria - Musculoskeletal Musculoskeletal: absent: Abnormal Gait - Integumentary Integumentary: absent: Bleeding Lesions - Neurological Neurological: Dizziness. absent: Abnormal Gait, Sensory Deficit, Syncope, Tingling, Tremor, Vertigo, Weakness, Other Visual Disturbances - Psychiatric Psychiatric: absent: Anxiety, Confusion - Endocrine Endocrine: absent: Change in Body Appearance - Hematologic/Lymphatic Hematologic: absent: Easy Bleeding Past Patient History - Infectious Disease Hx of Infectious Diseases: None - Past Medical History & Family History Past Medical History?: Yes - Past Social History Smoking Status: Light Smoker < 10 Cigarettes Daily - CARDIAC Hx Hypertension: Yes - PULMONARY Hx Respiratory Disorders: No - NEUROLOGICAL Hx Neurological Disorder: No - HEENT Hx HEENT Problems: No - RENAL Hx Chronic Kidney Disease: No - ENDOCRINE/METABOLIC Hx Endocrine Disorders: No - HEMATOLOGICAL/ONCOLOGICAL Hx Blood Disorders: No - INTEGUMENTARY Hx Dermatological Problems: No - MUSCULOSKELETAL/RHEUMATOLOGICAL Hx Musculoskeletal Disorders: No Hx Falls: No - GASTROINTESTINAL Hx Gastritis: Yes - GENITOURINARY/GYNECOLOGICAL Hx Genitourinary Disorders: No - PSYCHIATRIC Hx Psychophysiologic Disorder: No Hx Substance Use: Yes (PT DENIES) - SURGICAL HISTORY Hx Surgeries: Yes Hx Orthopedic Surgery: Yes (GEE FOOT SURGERY, LT LEG SX, HAND SURGERY) - ANESTHESIA Hx Anesthesia: Yes Hx Anesthesia Reactions: Yes ("HARD TO WAKE UP") Hx Malignant Hyperthermia: No Meds Allergies/Adverse Reactions: Allergies Allergy/AdvReac Type Severity Reaction Status Date / Time No Known Allergies Allergy Verified 01/16/19 16:16 Physical Exam - Constitutional Appears: No Acute Distress - Head Exam Head Exam: ATRAUMATIC, NORMAL INSPECTION, NORMOCEPHALIC - Eye Exam Eye Exam: EOMI, Normal appearance, PERRL Pupil Exam: NORMAL ACCOMODATION - ENT Exam ENT Exam: Mucous Membranes Moist - Neck Exam Neck exam: Positive for: Normal Inspection - Respiratory Exam Respiratory Exam: Clear to Auscultation Bilateral, NORMAL BREATHING PATTERN - Cardiovascular Exam Cardiovascular Exam: Bradycardia, REGULAR RHYTHM, +S1, +S2 - GI/Abdominal Exam GI & Abdominal Exam: Normal Bowel Sounds, Soft. absent: Tenderness - Extremities Exam Extremities exam: Positive for: normal inspection - Back Exam Back exam: NORMAL INSPECTION. absent: CVA tenderness (L), CVA tenderness (R) - Neurological Exam Neurological exam: Alert, CN II-XII Intact, Oriented x3, Reflexes Normal - Psychiatric Exam Psychiatric exam: Normal Affect - Skin Skin Exam: Dry, Intact, Normal Color, Warm Results - Vital Signs Recent Vital Signs: Last Vital Signs Temp 98.6 F 01/17/19 04:00 Pulse 48 L 01/17/19 06:45 Resp 15 01/17/19 06:45 BP 161/81 H 01/17/19 06:45 Pulse Ox 97 01/17/19 06:45 - Labs Result Diagrams: 01/17/19 06:32 01/17/19 06:32 Labs: Laboratory Results - last 24 hr 01/16/19 01/16/19 01/16/19 18:40 18:40 18:58 WBC 3.5 L RBC 4.02 L Hgb 12.8 Hct 38.4 MCV 95.5 H MCH 31.8 H MCHC 33.2 RDW 14.0 Plt Count 156 MPV 9.7 Neut % (Auto) 38.8 L Lymph % (Auto) 46.4 H [place] % (Auto) 12.4 H Eos % (Auto) 1.5 Baso % (Auto) 0.9 Neut # (Auto) 1.4 L Lymph # (Auto) 1.6 [place] # (Auto) 0.4 Eos # (Auto) 0.1 Baso # (Auto) 0.0 Sodium 140 Potassium 4.1 Chloride 106 Carbon Dioxide 28 Anion Gap 10 BUN 14 Creatinine 0.6 L Est GFR ( Amer) > 60 Est GFR (Non-Af Amer) > 60 Random Glucose 94 Calcium 9.0 Total Bilirubin 0.4 AST 105 H D ALT 82 H D Alkaline Phosphatase 53 Troponin I < 0.0120 NT-Pro-B Natriuret Pep 822 Total Protein 7.7 Albumin 4.1 Globulin 3.6 Albumin/Globulin Ratio 1.1 Lipase 75 Urine Color Urine Clarity Urine pH Ur Specific [place] Urine Protein Urine Glucose (UA) Urine Ketones Urine Blood Urine Nitrate Urine Bilirubin Urine Urobilinogen Ur Leukocyte Esterase Urine RBC (Auto) Urine Microscopic WBC Ur Squamous Epith Cells Urine Bacteria Urine Opiates Screen Negative Urine Methadone Screen Negative Ur Barbiturates Screen Negative Ur Phencyclidine Scrn Negative Ur Amphetamines Screen Negative U Benzodiazepines Scrn Negative U Oth Cocaine Metabols Negative U Cannabinoids Screen Positive H 01/16/19 01/17/19 01/17/19 18:58 01:00 06:32 WBC RBC Hgb Hct MCV MCH MCHC RDW Plt Count MPV Neut % (Auto) Lymph % (Auto) [place] % (Auto) Eos % (Auto) Baso % (Auto) Neut # (Auto) Lymph # (Auto) [place] # (Auto) Eos # (Auto) Baso # (Auto) Sodium 139 Potassium 3.6 Chloride 105 Carbon Dioxide 28 Anion Gap 10 BUN 12 Creatinine 0.5 L Est GFR ( Amer) > 60 Est GFR (Non-Af Amer) > 60 Random Glucose 91 Calcium 8.8 Total Bilirubin AST ALT Alkaline Phosphatase Troponin I < 0.0120 < 0.0120 NT-Pro-B Natriuret Pep Total Protein Albumin Globulin Albumin/Globulin Ratio Lipase Urine Color Yellow Urine Clarity Slighty-cloudy Urine pH 6.0 Ur Specific [place] 1.024 Urine Protein 30 Urine Glucose (UA) Neg Urine Ketones Negative Urine Blood Negative Urine Nitrate Negative Urine Bilirubin Negative Urine Urobilinogen 0.2 Ur Leukocyte Esterase Neg Urine RBC (Auto) 1 Urine Microscopic WBC 1 Ur Squamous Epith Cells < 1 Urine Bacteria Rare Urine Opiates Screen Urine Methadone Screen Ur Barbiturates Screen Ur Phencyclidine Scrn Ur Amphetamines Screen U Benzodiazepines Scrn U Oth Cocaine Metabols U Cannabinoids Screen 01/17/19 06:32 WBC 2.8 L RBC 3.97 L Hgb 12.7 Hct 37.6 MCV 94.7 H MCH 31.9 H MCHC 33.7 RDW 14.0 Plt Count 145 MPV Neut % (Auto) Lymph % (Auto) [place] % (Auto) Eos % (Auto) Baso % (Auto) Neut # (Auto) Lymph # (Auto) [place] # (Auto) Eos # (Auto) Baso # (Auto) Sodium Potassium Chloride Carbon Dioxide Anion Gap BUN Creatinine Est GFR ( Amer) Est GFR (Non-Af Amer) Random Glucose Calcium Total Bilirubin AST ALT Alkaline Phosphatase Troponin I NT-Pro-B Natriuret Pep Total Protein Albumin Globulin Albumin/Globulin Ratio Lipase Urine Color Urine Clarity Urine pH Ur Specific [place] Urine Protein Urine Glucose (UA) Urine Ketones Urine Blood Urine Nitrate Urine Bilirubin Urine Urobilinogen Ur Leukocyte Esterase Urine RBC (Auto) Urine Microscopic WBC Ur Squamous Epith Cells Urine Bacteria Urine Opiates Screen Urine Methadone Screen Ur Barbiturates Screen Ur Phencyclidine Scrn Ur Amphetamines Screen U Benzodiazepines Scrn U Oth Cocaine Metabols U Cannabinoids Screen Assessment & Plan - Assessment and Plan (Free Text) Assessment: A/P: 73 y/o male with history of CAD, HTN and bradycardia admitted to [facility] for evaluation and treatment of Epigastric pain radiating to chest and bradycardia. Chest pain, r/o ACS - EKG: + Anibal - Trop x 2 negative - Consult cardiology for bradycardia, f/u recs - F/u troponin and morning EKG Symptomatic Bradycardia, chronic - S/p Dopamine - Consult cardiology for bradycardia, f/u recs - START Procardia, titrate as needed Epigastric pain, acute, likely due to gastritis - U/s gallbladder: negative for any acute changes - Maalox, Lidocain and Pepcid as ordered - Pain management as ordered HTN, Chronic, uncontrolled, non-compliance - START Norvasc 10mg daily Alcohol use disorder - Monitor for any withdrawal - elevated AST/ALT, consistent with Alcohol use DVT PPX - SCD/Lovenox Case discussed and patient seen with Dr. Rivera, agrees with plan
[2019-01-17] MEDS ORDERED: Alum-Mag Hydrox-Simethicone Susp (30 mL) PO STA (07:58)
--- NOTE | 2019-01-17 10:33 | CP.PCM.CON ---
History of Present Illness - History of Present Illness History of Present Illness: This 73-year-old man was sent to the emergency room by his physician for abdominal pain. The patient has been hospitalized in the past at this institution for abdominal pain and is undergone endoscopy for hematemesis. He denies any sense of lightheadedness or syncope and was recently treated at the hospital in [place] for bleeding from the nose. He has a long history of chronic cigarette use and drinks alcohol regularly. He lives in a fdc and has often taken his medicines erratically. He denies any history of myocardial infarction or symptoms of congestive cardiac failure. Physical examination shows a thin built elderly man who is alert awake coherent afebrile with a pulse rate of 52 bpm regular and a blood pressure of 150/70 mmHg lying down and sitting up. His jugular venous pressure was not elevated and there was no edema over his lower extremities. The pedal pulses were extremely feeble. There were no carotid bruits. His apex was not palpable the first and second heart sounds were normal. There was no murmur or gallop. There were no rales. Abdomen was soft liver and spleen were not palpable. His electrocardiogram showed sinus rhythm with bradycardia but otherwise normal pattern. Review of his electrocardiograms over the last couple of years show a similar pattern though with physiologic heart rates. An echocardiogram last year showed normal left ventricular systolic function. Lab data showed mild anemia which was macrocytic. With normal platelet count. His BUN/creatinine and electrolytes were normal. AST and ALT were elevated. Impression: Sinus bradycardia(?? Sick sinus syndrome) which is quite asymptomatic at this juncture. Chronic alcohol use and chronic cigarette use. The patient will be observed on telemetry I have discussed his case with the crusher feeder. Past Patient History - Infectious Disease Hx of Infectious Diseases: None - Past Medical History & Family History Past Medical History?: Yes - Past Social History Smoking Status: Light Smoker < 10 Cigarettes Daily - CARDIAC Hx Hypertension: Yes - PULMONARY Hx Respiratory Disorders: No - NEUROLOGICAL Hx Neurological Disorder: No - HEENT Hx HEENT Problems: No - RENAL Hx Chronic Kidney Disease: No - ENDOCRINE/METABOLIC Hx Endocrine Disorders: No - HEMATOLOGICAL/ONCOLOGICAL Hx Blood Disorders: No - INTEGUMENTARY Hx Dermatological Problems: No - MUSCULOSKELETAL/RHEUMATOLOGICAL Hx Musculoskeletal Disorders: No Hx Falls: No - GASTROINTESTINAL Hx Gastritis: Yes - GENITOURINARY/GYNECOLOGICAL Hx Genitourinary Disorders: No - PSYCHIATRIC Hx Psychophysiologic Disorder: No Hx Substance Use: Yes (PT DENIES) - SURGICAL HISTORY Hx Surgeries: Yes Hx Orthopedic Surgery: Yes (GEE FOOT SURGERY, LT LEG SX, HAND SURGERY) - ANESTHESIA Hx Anesthesia: Yes Hx Anesthesia Reactions: Yes ("HARD TO WAKE UP") Hx Malignant Hyperthermia: No Meds Allergies/Adverse Reactions: Allergies Allergy/AdvReac Type Severity Reaction Status Date / Time No Known Allergies Allergy Verified 01/16/19 16:16 - Medications Medications: Current Medications Acetaminophen (Tylenol 325mg Tab) 650 mg PO Q6 PRN PRN Reason: Pain, moderate (4-7) Acetaminophen (Tylenol 325mg Tab) 650 mg PO Q6 PRN PRN Reason: Fever >100.4 F Amlodipine Besylate (Norvasc) 10 mg PO DAILY [facility] Enoxaparin Sodium (Lovenox) 40 mg SC DAILY [facility]; Protocol Famotidine (Pepcid) 20 mg PO BID [facility] Last Admin: 01/17/19 08:20 Dose: 20 mg Morphine Sulfate (Morphine) 1 mg IVP Q6 PRN PRN Reason: Pain, severe (8-10) Nifedipine (Procardia Xl) 30 mg PO DAILY [facility] Ondansetron HCl (Zofran Inj) 4 mg IVP Q6 PRN PRN Reason: Nausea/Vomiting Last Admin: 01/17/19 08:21 Dose: 4 mg Results - Vital Signs Recent Vital Signs: Last Vital Signs Temp 98.6 F 01/17/19 07:56 Pulse 48 L 01/17/19 07:56 Resp 8 L 01/17/19 07:56 BP 178/98 H 01/17/19 07:56 Pulse Ox 98 01/17/19 07:56 - Labs Result Diagrams: 01/17/19 06:32 01/17/19 06:32 Labs: Laboratory Results - last 24 hr 01/16/19 01/16/19 01/16/19 18:40 18:40 18:58 WBC 3.5 L RBC 4.02 L Hgb 12.8 Hct 38.4 MCV 95.5 H MCH 31.8 H MCHC 33.2 RDW 14.0 Plt Count 156 MPV 9.7 Neut % (Auto) 38.8 L Lymph % (Auto) 46.4 H Blanco % (Auto) 12.4 H Eos % (Auto) 1.5 Baso % (Auto) 0.9 Neut # (Auto) 1.4 L Lymph # (Auto) 1.6 Blanco # (Auto) 0.4 Eos # (Auto) 0.1 Baso # (Auto) 0.0 Sodium 140 Potassium 4.1 Chloride 106 Carbon Dioxide 28 Anion Gap 10 BUN 14 Creatinine 0.6 L Est GFR ( Amer) > 60 Est GFR (Non-Af Amer) > 60 Random Glucose 94 Calcium 9.0 Total Bilirubin 0.4 AST 105 H D ALT 82 H D Alkaline Phosphatase 53 Troponin I < 0.0120 NT-Pro-B Natriuret Pep 822 Total Protein 7.7 Albumin 4.1 Globulin 3.6 Albumin/Globulin Ratio 1.1 Lipase 75 Urine Color Urine Clarity Urine pH Ur Specific Latham Urine Protein Urine Glucose (UA) Urine Ketones Urine Blood Urine Nitrate Urine Bilirubin Urine Urobilinogen Ur Leukocyte Esterase Urine RBC (Auto) Urine Microscopic WBC Ur Squamous Epith Cells Urine Bacteria Urine Opiates Screen Negative Urine Methadone Screen Negative Ur Barbiturates Screen Negative Ur Phencyclidine Scrn Negative Ur Amphetamines Screen Negative U Benzodiazepines Scrn Negative U Oth Cocaine Metabols Negative U Cannabinoids Screen Positive H 01/16/19 01/17/19 01/17/19 18:58 01:00 06:32 WBC RBC Hgb Hct MCV MCH MCHC RDW Plt Count MPV Neut % (Auto) Lymph % (Auto) Blanco % (Auto) Eos % (Auto) Baso % (Auto) Neut # (Auto) Lymph # (Auto) Blanco # (Auto) Eos # (Auto) Baso # (Auto) Sodium 139 Potassium 3.6 Chloride 105 Carbon Dioxide 28 Anion Gap 10 BUN 12 Creatinine 0.5 L Est GFR ( Amer) > 60 Est GFR (Non-Af Amer) > 60 Random Glucose 91 Calcium 8.8 Total Bilirubin AST ALT Alkaline Phosphatase Troponin I < 0.0120 < 0.0120 NT-Pro-B Natriuret Pep Total Protein Albumin Globulin Albumin/Globulin Ratio Lipase Urine Color Yellow Urine Clarity Slighty-cloudy Urine pH 6.0 Ur Specific Latham 1.024 Urine Protein 30 Urine Glucose (UA) Neg Urine Ketones Negative Urine Blood Negative Urine Nitrate Negative Urine Bilirubin Negative Urine Urobilinogen 0.2 Ur Leukocyte Esterase Neg Urine RBC (Auto) 1 Urine Microscopic WBC 1 Ur Squamous Epith Cells < 1 Urine Bacteria Rare Urine Opiates Screen Urine Methadone Screen Ur Barbiturates Screen Ur Phencyclidine Scrn Ur Amphetamines Screen U Benzodiazepines Scrn U Oth Cocaine Metabols U Cannabinoids Screen 01/17/19 06:32 WBC 2.8 L RBC 3.97 L Hgb 12.7 Hct 37.6 MCV 94.7 H MCH 31.9 H MCHC 33.7 RDW 14.0 Plt Count 145 MPV Neut % (Auto) Lymph % (Auto) Blanco % (Auto) Eos % (Auto) Baso % (Auto) Neut # (Auto) Lymph # (Auto) Blanco # (Auto) Eos # (Auto) Baso # (Auto) Sodium Potassium Chloride Carbon Dioxide Anion Gap BUN Creatinine Est GFR ( Amer) Est GFR (Non-Af Amer) Random Glucose Calcium Total Bilirubin AST ALT Alkaline Phosphatase Troponin I NT-Pro-B Natriuret Pep Total Protein Albumin Globulin Albumin/Globulin Ratio Lipase Urine Color Urine Clarity Urine pH Ur Specific Latham Urine Protein Urine Glucose (UA) Urine Ketones Urine Blood Urine Nitrate Urine Bilirubin Urine Urobilinogen Ur Leukocyte Esterase Urine RBC (Auto) Urine Microscopic WBC Ur Squamous Epith Cells Urine Bacteria Urine Opiates Screen Urine Methadone Screen Ur Barbiturates Screen Ur Phencyclidine Scrn Ur Amphetamines Screen U Benzodiazepines Scrn U Oth Cocaine Metabols U Cannabinoids Screen
--- NOTE | 2019-01-17 11:09 | CARD ---
APPROVED REPORT Date of service: 01/17/2019 EKG Measurement Heart [id number] <Conclusion> Sinus bradycardia Otherwise normal ECG
--- NOTE | 2019-01-17 11:27 | CARD ---
APPROVED REPORT Date of service: 01/16/2019 EKG Measurement Heart [id number] <Conclusion> Marked sinus bradycardia Abnormal ECG
--- NOTE | 2019-01-17 11:31 | CARD ---
APPROVED REPORT Date of service: 01/16/2019 EKG Measurement Heart [id number] <Conclusion> Sinus rhythm with premature atrial complexes in a pattern of bigeminy Otherwise normal ECG
--- NOTE | 2019-01-17 12:22 | US ---
Date of service: 01/16/2019 HISTORY: epigastric abd pain COMPARISON: 10/14/2017. Abdominal ultrasound. TECHNIQUE: Sonographic evaluation of the right upper quadrant of the abdomen. FINDINGS: LIVER: Measures 16.1 cm in length. Patent portal and hepatic venous systems. Portal venous flow: Hepatopetal. echogenicity of the liver parenchyma. No mass. No intrahepatic bile duct dilatation. GALLBLADDER: Multiple gallbladder wall polyps. The largest on the current study measures 6.5 mm. Negative study for gallbladder wall thickening, pericholecystic fluid, sonographic Garza's sign. COMMON BILE DUCT: Measures 3.7 mm. No stones. No dilatation. PANCREAS: Unremarkable as visualized. No mass. No ductal dilatation. RIGHT KIDNEY: Measures 3.9 x 10.6 cm in length. Normal echogenicity. No calculus, mass, or hydronephrosis. AORTA: No aneurysmal dilatation. IVC: Unremarkable. OTHER FINDINGS: None . IMPRESSION: No acute or significant findings related to/ accounting for the clinical presentation. Additional benign and/or incidental findings described above. No significant interval change compared to the prior examination(s). Concordant findings (preliminary report) provided by [facility].
[2019-01-17] MEDS: Enoxaparin 40 mg Syringe SC SCH (12:31)
[2019-01-17] MEDS: NIFEdipine 30 mg ER Tab PO SCH (12:31)
--- NOTE | 2019-01-17 12:56 | RAD ---
Date of service: 01/16/2019 HISTORY: abdominal pain COMPARISON: No prior. TECHNIQUE: 1 view obtained. FINDINGS: LUNGS: No active pulmonary disease. Lung volumes appear increased PLEURA: No significant pleural effusion identified, no pneumothorax apparent. CARDIOVASCULAR: No aortic atherosclerotic calcification present. Normal cardiac size. No pulmonary vascular congestion. OSSEOUS STRUCTURES: No significant abnormalities. VISUALIZED UPPER ABDOMEN: Normal. OTHER FINDINGS: None. IMPRESSION: Increased lung volumes possible emphysema-correlate clinically. No consolidation seen. No subdiaphragmatic free air seen.
--- NOTE | 2019-01-17 15:51 | CARD ---
APPROVED REPORT Date of service: 01/17/2019 EXAM: Two-dimensional and M-mode echocardiogram with Doppler and color Doppler. Other Information Quality : GoodRhythm : Bradycardia INDICATION Abnormal EKG/Arrhythmia 2D DIMENSIONS IVSd0.94 (0.7-1.1cm)LVDd4.42 (3.9-5.9cm) LVOT Diameter2.30 (1.8-2.4cm)PWd0.94 (0.7-1.1cm) IVSs0.83 (0.8-1.2cm)LVDs3.30 (2.5-4.0cm) FS (%) 25.4 %PWs1.44 (0.8-1.2cm) M-Mode DIMENSIONS IVSd0.71 (0.7-1.1cm)LVDd6.29 (4.0-5.6cm) PWd1.12 (0.7-1.1cm)IVSs1.76 cm FS (%) 40 %LVDs3.76 (2.0-3.8cm) PWs1.41 cm Aortic Valve AoV Peak Gyadudpi840.0cm/sAoV VTI21.3cmAO Peak GR.5mmHg LVOT Peak Ckhcmezw79.4cm/sLVOT VTI21.18cmAO Mean GR.2mmHg CLAUDIO (VMAX)2.58pk6RJY (VTI)2.40cm2 Mitral Valve MV E Jrbtbfmy47.4cm/sMV DECEL UNDO203evTO A Qwfydigu56.1cm/s MV RPY88jjR/A ratio1.6MVA (PHT)4.07cm2 TDI Lateral E' Peak V10.19cm/sMedial E' Peak V8.96cm/sE/Lateral E'9.2 E/Medial E'10.4 LEFT VENTRICLE The left ventricle is normal size. There is normal left ventricular wall thickness. The left ventricular systolic function is normal. The estimated ejection fraction is 55-60% No regional wall motion abnormalities noted.. Transmitral Doppler flow pattern is Grade II-pseudonormal filling dynamics. No left ventricle thrombus noted on this study. There is no ventricular septal defect visualized. There is no left ventricular aneurysm. There is no mass noted in the left ventricle. RIGHT VENTRICLE The right ventricle is normal size. There is normal right ventricular wall thickness. The right ventricular systolic function is normal. ATRIA The left atrium is mildly dilated. The right atrium size is normal. The interatrial septum is intact with no evidence for an atrial septal defect. AORTIC VALVE The aortic valve is normal in structure. No aortic regurgitation is present. There is no aortic valvular stenosis. There is no aortic valvular vegetation. MITRAL VALVE The mitral valve is normal in structure. There is no evidence of mitral valve prolapse. There is no mitral valve stenosis. There is mild mitral valve regurgitation noted. TRICUSPID VALVE The tricuspid valve is normal in structure. There is trace tricuspid valve regurgitation noted. There is no tricuspid valve prolapse or vegetation. There is no tricuspid valve stenosis. PULMONIC VALVE The pulmonary valve is normal in structure. There is no pulmonic valvular regurgitation. There is no pulmonic valvular stenosis. GREAT VESSELS The aortic root is normal in size. The ascending aorta is normal in size. The pulmonary artery is normal. The IVC is dilated in size and collapses >50% with inspiration. PERICARDIAL EFFUSION There is no pericardial effusion. There is no pleural effusion. <Conclusion> The estimated ejection fraction is 55-60% Transmitral Doppler flow pattern is Grade II-pseudonormal filling dynamics. The left atrium is mildly dilated. There is mild mitral valve regurgitation noted. There is trace tricuspid valve regurgitation noted. The IVC is dilated in size and collapses >50% with inspiration.
[2019-01-17] MEDS ORDERED: Enalaprilat 2.5 MG/2 ML IVP PRN (16:51)
[2019-01-18 06:39] LABS: BASO % 1.1 % (0.0-2.0); EOS # 0.1 K/uL (0.0-0.7); EOS % 2.1 % (0.0-4.0); LYMPH # 1.4 K/uL (1.0-4.3); LYMPH % 47.6 % (20.0-40.0); MEAN CELL VOLUME 94.4 fl (80.0-94.0); MEAN CORPUSCULAR HEMOGLOBIN 31.7 pg (27.0-31.0); MEAN CORPUSCULAR HGB CONC 33.5 g/dL (33.0-37.0); MONO # 0.5 K/uL (0.0-0.8); MONO % 15.2 % (0.0-10.0); NRBC % 0.2 % (0.0-0.0); RBC 4.42 Mil/uL (4.40-5.90); RED CELL DISTRIBUTION WIDTH 13.7 % (11.5-14.5)
--- NOTE | 2019-01-18 07:21 | CP.PCM.PN ---
Subjective - Date & Time of Evaluation Date of Evaluation: 01/18/19 Time of Evaluation: 06:10 - Subjective Subjective: Patient seen and examined this morning with Dr. Rivera. NAD, no acute event overnight, denies any chest pain, SOB or dizziness. + on and off mild heart burn VS: Reviewed Cardio consult appreciated Labs reviewed, WBC: 3.0: Consult HemOnc, f/u recs C/w management as ordered Objective - Vital Signs/Intake and Output Vital Signs (last 24 hours): Temp Pulse Resp BP Pulse Ox 98.5 F 45 L 15 148/80 96 01/18/19 01:00 01/18/19 01:00 01/18/19 01:00 01/18/19 01:00 01/18/19 01:00 - Medications Medications: Current Medications Acetaminophen (Tylenol 325mg Tab) 650 mg PO Q6 PRN PRN Reason: Pain, moderate (4-7) Acetaminophen (Tylenol 325mg Tab) 650 mg PO Q6 PRN PRN Reason: Fever >100.4 F Amlodipine Besylate (Norvasc) 10 mg PO DAILY [facility] Last Admin: 01/17/19 12:31 Dose: 10 mg Enalaprilat (Vasotec) 2.5 mg IVP Q6H PRN PRN Reason: Systolic Blood Pressure Enoxaparin Sodium (Lovenox) 40 mg SC DAILY [facility]; Protocol Last Admin: 01/17/19 12:31 Dose: 40 mg Famotidine (Pepcid) 20 mg PO BID [facility] Last Admin: 01/17/19 08:20 Dose: 20 mg Morphine Sulfate (Morphine) 1 mg IVP Q6 PRN PRN Reason: Pain, severe (8-10) Nifedipine (Procardia Xl) 30 mg PO DAILY [facility] Last Admin: 01/17/19 12:31 Dose: 30 mg Ondansetron HCl (Zofran Inj) 4 mg IVP Q6 PRN PRN Reason: Nausea/Vomiting Last Admin: 01/17/19 08:21 Dose: 4 mg - Labs Labs: 01/18/19 05:10 01/17/19 06:32 - Constitutional Appears: No Acute Distress - Head Exam Head Exam: NORMAL INSPECTION - Eye Exam Eye Exam: Normal appearance - ENT Exam ENT Exam: Mucous Membranes Moist - Neck Exam Neck Exam: Normal Inspection - Respiratory Exam Respiratory Exam: Clear to Ausculation Bilateral, NORMAL BREATHING PATTERN - Cardiovascular Exam Cardiovascular Exam: Bradycardia, REGULAR RHYTHM, +S1, +S2 - GI/Abdominal Exam GI & Abdominal Exam: Soft, Normal Bowel Sounds. absent: Tenderness - Extremities Exam Extremities Exam: Full ROM, Normal Capillary Refill, Normal Inspection - Back Exam Back Exam: NORMAL INSPECTION. absent: CVA tenderness (L), CVA tenderness (R) - Neurological Exam Neurological Exam: Alert, Awake, CN II-XII Intact, Oriented x3 - Psychiatric Exam Psychiatric exam: Normal Affect - Skin Skin Exam: Normal Color Assessment and Plan - Assessment and Plan (Free Text) Assessment: A/P: 73 y/o male with history of CAD, HTN and bradycardia admitted to [facility] for evaluation and treatment of Epigastric pain radiating to chest and bradycardia. Symptomatic Bradycardia, chronic - Improved - S/p Dopamine - Consult cardiology for bradycardia, recommendations appreciated - C/w Procardia, titrate as needed - Echo 04/2019: 55-60% EF - PT today Chronic Leukppenia - Consult Hem-Onc, f/u recommendations Non-cardiac Chest pain, ACS ruled out - EKG: + Anibal - Trop x 3 neative Epigastric pain, acute, likely due to gastritis - U/s gallbladder: negative for any acute changes - Maalox, Lidocain and Pepcid as ordered - Pain management as ordered HTN, Chronic, uncontrolled, non-compliance - START Norvasc 10mg daily Alcohol use disorder - Monitor for any withdrawal - elevated AST/ALT, consistent with Alcohol use DVT PPX - SCD/Lovenox Case discussed and patient seen with Dr. Rivera, agrees with plan
[2019-01-18] MEDS: Enoxaparin 40 mg Syringe SC SCH (08:56)
[2019-01-18] MEDS: NIFEdipine 30 mg ER Tab PO SCH (08:57)
--- NOTE | 2019-01-18 09:56 | CP.PCM.PN ---
Subjective - Date & Time of Evaluation Date of Evaluation: 01/18/19 Time of Evaluation: 09:40 - Subjective Subjective: The patient has no new symptoms. Review of his night monitor over the last 24 hours show a sinus rhythm at rates between 55 and 65 bpm with heart rate as low as 47 bpm during sleep. His blood pressure is 146/72 mmHg. There is no evidence of congestive cardiac failure. The patient is stable from cardiovascular point of view and no further intervention is recommended. Objective - Vital Signs/Intake and Output Vital Signs (last 24 hours): Temp Pulse Resp BP Pulse Ox 98.7 F 56 L 18 162/94 H 97 01/18/19 08:10 01/18/19 08:57 01/18/19 08:10 01/18/19 08:57 01/18/19 08:10 - Medications Medications: Current Medications Acetaminophen (Tylenol 325mg Tab) 650 mg PO Q6 PRN PRN Reason: Pain, moderate (4-7) Acetaminophen (Tylenol 325mg Tab) 650 mg PO Q6 PRN PRN Reason: Fever >100.4 F Amlodipine Besylate (Norvasc) 10 mg PO DAILY [facility] Last Admin: 01/18/19 08:56 Dose: 10 mg Enalaprilat (Vasotec) 2.5 mg IVP Q6H PRN PRN Reason: Systolic Blood Pressure Enoxaparin Sodium (Lovenox) 40 mg SC DAILY [facility]; Protocol Last Admin: 01/18/19 08:56 Dose: 40 mg Famotidine (Pepcid) 20 mg PO BID [facility] Last Admin: 01/18/19 08:56 Dose: 20 mg Morphine Sulfate (Morphine) 1 mg IVP Q6 PRN PRN Reason: Pain, severe (8-10) Nifedipine (Procardia Xl) 30 mg PO DAILY [facility] Last Admin: 01/18/19 08:57 Dose: 30 mg Ondansetron HCl (Zofran Inj) 4 mg IVP Q6 PRN PRN Reason: Nausea/Vomiting Last Admin: 01/17/19 08:21 Dose: 4 mg - Labs Labs: 01/18/19 05:10 01/17/19 06:32
[2019-01-18] MEDS ORDERED: Alum-Mag Hydrox-Simethicone Susp (30 mL) PO STA (10:09)
--- NOTE | 2019-01-18 22:30 | CP.PCM.CON ---
History of Present Illness - History of Present Illness History of Present Illness: 73 year old male with a history of HTN, daily alcohol, presenting from his PMD with abdominal pain, found to be bradycardic and leukopenic. The patient denies having blood problems in the past. He does note to vomiting blood in the past but is unsure of the work up. He also notes to bloody noses in the past and was recently seen at [facility] for this. He currently denies abnormal bleeding and bruising. Pat medical history: HTN Past surgical history: Denies hematologic and oncologic problems Family history: Denies hematologic and oncologic problems Social history: 1-2 cigarettes daily, daily alcohol, denies illicit drug use. Allergies: NKA Review of systems: All remaining review of systems including HEENT, cardiovas cular, respiratory, gastrointestinal, genitourinary, musculoskeletal, dermatologic, neurologic, and psychiatric are negative unless mentioned in the HPI. Past Patient History - Infectious Disease Hx of Infectious Diseases: None - Past Medical History & Family History Past Medical History?: Yes - Past Social History Smoking Status: Light Smoker < 10 Cigarettes Daily - CARDIAC Hx Hypertension: Yes - PULMONARY Hx Respiratory Disorders: No - NEUROLOGICAL Hx Neurological Disorder: No - HEENT Hx HEENT Problems: No - RENAL Hx Chronic Kidney Disease: No - ENDOCRINE/METABOLIC Hx Endocrine Disorders: No - HEMATOLOGICAL/ONCOLOGICAL Hx Blood Disorders: No - INTEGUMENTARY Hx Dermatological Problems: No - MUSCULOSKELETAL/RHEUMATOLOGICAL Hx Musculoskeletal Disorders: No Hx Falls: No - GASTROINTESTINAL Hx Gastritis: Yes - GENITOURINARY/GYNECOLOGICAL Hx Genitourinary Disorders: No - PSYCHIATRIC Hx Psychophysiologic Disorder: No Hx Substance Use: Yes (PT DENIES) - SURGICAL HISTORY Hx Surgeries: Yes Hx Orthopedic Surgery: Yes (GEE FOOT SURGERY, LT LEG SX, HAND SURGERY) - ANESTHESIA Hx Anesthesia: Yes Hx Anesthesia Reactions: Yes ("HARD TO WAKE UP") Hx Malignant Hyperthermia: No Meds Allergies/Adverse Reactions: Allergies Allergy/AdvReac Type Severity Reaction Status Date / Time No Known Allergies Allergy Verified 01/16/19 16:16 - Medications Medications: Current Medications Acetaminophen (Tylenol 325mg Tab) 650 mg PO Q6 PRN PRN Reason: Pain, moderate (4-7) Acetaminophen (Tylenol 325mg Tab) 650 mg PO Q6 PRN PRN Reason: Fever >100.4 F Amlodipine Besylate (Norvasc) 10 mg PO DAILY [facility] Last Admin: 01/18/19 08:56 Dose: 10 mg Enalaprilat (Vasotec) 2.5 mg IVP Q6H PRN PRN Reason: Systolic Blood Pressure Enoxaparin Sodium (Lovenox) 40 mg SC DAILY [facility]; Protocol Last Admin: 01/18/19 08:56 Dose: 40 mg Famotidine (Pepcid) 20 mg PO BID [facility] Last Admin: 01/18/19 17:13 Dose: 20 mg Morphine Sulfate (Morphine) 1 mg IVP Q6 PRN PRN Reason: Pain, severe (8-10) Nifedipine (Procardia Xl) 30 mg PO DAILY [facility] Last Admin: 01/18/19 08:57 Dose: 30 mg Ondansetron HCl (Zofran Inj) 4 mg IVP Q6 PRN PRN Reason: Nausea/Vomiting Last Admin: 01/17/19 08:21 Dose: 4 mg Physical Exam - Head Exam Head Exam: ATRAUMATIC - Eye Exam Eye Exam: Normal appearance - ENT Exam ENT Exam: Mucous Membranes Dry - Respiratory Exam Respiratory Exam: NORMAL BREATHING PATTERN - Cardiovascular Exam Cardiovascular Exam: +S1, +S2 - GI/Abdominal Exam GI & Abdominal Exam: Normal Bowel Sounds - Extremities Exam Extremities exam: Positive for: normal inspection - Neurological Exam Neurological exam: Oriented x3 - Psychiatric Exam Psychiatric exam: Normal Affect, Normal Mood - Skin Skin Exam: Warm Results - Vital Signs Recent Vital Signs: Last Vital Signs Temp 99.2 F 01/18/19 16:00 Pulse 58 L 01/18/19 16:07 Resp 20 01/18/19 16:00 BP 135/77 01/18/19 16:00 Pulse Ox 98 01/18/19 16:07 - Labs Result Diagrams: 01/18/19 05:10 01/17/19 06:32 Labs: Laboratory Results - last 24 hr 01/17/19 01/17/19 01/17/19 04:34 11:11 16:39 WBC RBC Hgb Hct MCV MCH MCHC RDW Plt Count MPV Neut % (Auto) Lymph % (Auto) Bent % (Auto) Eos % (Auto) Baso % (Auto) Neut # (Auto) Lymph # (Auto) Bent # (Auto) Eos # (Auto) Baso # (Auto) POC Glucose (mg/dL) 94 111 H 106 01/17/19 01/18/19 01/18/19 20:48 05:10 05:26 WBC 3.0 L RBC 4.42 Hgb 14.0 Hct 41.7 MCV 94.4 H MCH 31.7 H MCHC 33.5 RDW 13.7 Plt Count 156 MPV 10.0 Neut % (Auto) 34.0 L Lymph % (Auto) 47.6 H Bent % (Auto) 15.2 H Eos % (Auto) 2.1 Baso % (Auto) 1.1 Neut # (Auto) 1.0 L Lymph # (Auto) 1.4 Bent # (Auto) 0.5 Eos # (Auto) 0.1 Baso # (Auto) 0.0 POC Glucose (mg/dL) 113 H 100 Assessment & Plan (1) Leukopenia Assessment and Plan: mild neutropenia suspect related to bone marrow suppression from daily alcohol will check HIV and hepatitis panel Thank you for this interesting consult. Status: Acute
[2019-01-19] MEDS: Enoxaparin 40 mg Syringe SC SCH (08:48)
[2019-01-19] MEDS: NIFEdipine 30 mg ER Tab PO SCH (08:50)
[2019-01-19 12:28] LABS: HEPATITIS B SURFACE AG Negative (NEGATIVE)
[2019-01-19 12:33] LABS: HEPATITIS A IGM NEGATIVE (NEGATIVE); HEPATITIS B CORE AB NEGATIVE (NEGATIVE)
[2019-01-19 14:16] LABS: HEPATITIS C ANTIBODY REACTIVE (NEGATIVE)
[2019-01-19 14:44] VITALS: RESP 22
--- NOTE | 2019-01-19 14:44 | CP.PCM.DIS ---
Provider - Provider Date of Admission: 01/16/19 20:16 Attending physician: Jens Rivera MD Primary care physician: Charity hylton Consults: 01/16/19 20:06 Cardiology Consult Stat Comment: Consulting Provider: Carlos Manuel Ny Consulting Physician: Carlos Manuel Ny Reason for Consult: bradycardia 01/17/19 08:00 Nursing Referral for Wound Care Routine Comment: Physician Instructions: Reason For Exam: admission 01/17/19 09:00 Social Work Referral Routine Comment: admission Physician Instructions: Reason For Exam: admission 01/18/19 07:19 Hematology Oncology Consult Routine Comment: Consulting Provider: Baldemar Russ Consulting Physician: Baldemar Russ Reason for Consult: Chronic Leukopenia Time Spent in preparation of Discharge (in minutes): 40 Diagnosis - Discharge Diagnosis (1) Bradycardia Status: Acute (2) Chronic leukopenia Status: Acute (3) Non-cardiac chest pain Status: Acute (4) Gastritis Status: Acute (5) Alcohol abuse Status: Acute Hospital Course - Lab Results Lab Results: Micro Results 01/17/19 00:00 Naris MRSA Culture (Admit) - Final MRSA NOT DETECTED Most Recent Lab Values WBC 3.0 K/uL (4.8-10.8) L 01/18/19 05:10 RBC 4.42 Mil/uL (4.40-5.90) 01/18/19 05:10 Hgb 14.0 g/dL (12.0-18.0) 01/18/19 05:10 Hct 41.7 % (35.0-51.0) 01/18/19 05:10 MCV 94.4 fl (80.0-94.0) H 01/18/19 05:10 MCH 31.7 pg (27.0-31.0) H 01/18/19 05:10 MCHC 33.5 g/dL (33.0-37.0) 01/18/19 05:10 RDW 13.7 % (11.5-14.5) 01/18/19 05:10 Plt Count 156 K/uL (130-400) 01/18/19 05:10 MPV 10.0 fl (7.2-11.7) 01/18/19 05:10 Neut % (Auto) 34.0 % (50.0-75.0) L 01/18/19 05:10 Lymph % (Auto) 47.6 % (20.0-40.0) H 01/18/19 05:10 Milam % (Auto) 15.2 % (0.0-10.0) H 01/18/19 05:10 Eos % (Auto) 2.1 % (0.0-4.0) 01/18/19 05:10 Baso % (Auto) 1.1 % (0.0-2.0) 01/18/19 05:10 Neut # (Auto) 1.0 K/uL (1.8-7.0) L 01/18/19 05:10 Lymph # (Auto) 1.4 K/uL (1.0-4.3) 01/18/19 05:10 Milam # (Auto) 0.5 K/uL (0.0-0.8) 01/18/19 05:10 Eos # (Auto) 0.1 K/uL (0.0-0.7) 01/18/19 05:10 Baso # (Auto) 0.0 K/uL (0.0-0.2) 01/18/19 05:10 Sodium 139 mmol/l (132-148) 01/17/19 06:32 Potassium 3.6 MMOL/L (3.6-5.0) 01/17/19 06:32 Chloride 105 mmol/L (98-107) 01/17/19 06:32 Carbon Dioxide 28 mmol/L (22-30) 01/17/19 06:32 Anion Gap 10 (10-20) 01/17/19 06:32 BUN 12 mg/dl (9-20) 01/17/19 06:32 Creatinine 0.5 mg/dl (0.8-1.5) L 01/17/19 06:32 Est GFR ( Amer) > 60 01/17/19 06:32 Est GFR (Non-Af Amer) > 60 01/17/19 06:32 POC Glucose (mg/dL) 100 mg/dL (65-110) 01/18/19 05:26 Random Glucose 91 mg/dL (75-110) 01/17/19 06:32 Calcium 8.8 mg/dL (8.4-10.2) 01/17/19 06:32 Total Bilirubin 0.4 mg/dl (0.2-1.3) 01/16/19 18:40 AST 105 U/L (17-59) H D 01/16/19 18:40 ALT 82 U/L (21-72) H D 01/16/19 18:40 Alkaline Phosphatase 53 U/L (38-126) 01/16/19 18:40 Troponin I < 0.0120 ng/mL (0.00-0.120) 01/17/19 06:32 NT-Pro-B Natriuret Pep 822 pg/ml (0-900) 01/16/19 18:40 Total Protein 7.7 G/DL (6.3-8.2) 01/16/19 18:40 Albumin 4.1 g/dL (3.5-5.0) 01/16/19 18:40 Globulin 3.6 gm/dL (2.2-3.9) 01/16/19 18:40 Albumin/Globulin Ratio 1.1 (1.0-2.1) 01/16/19 18:40 Lipase 75 U/L (23-300) 01/16/19 18:40 Urine Color Yellow (YELLOW) 01/16/19 18:58 Urine Clarity Slighty-cloudy (Clear) 01/16/19 18:58 Urine pH 6.0 (5.0-8.0) 01/16/19 18:58 Ur Specific [place] 1.024 (1.003-1.030) 01/16/19 18:58 Urine Protein 30 mg/dL (NEGATIVE) 01/16/19 18:58 Urine Glucose (UA) Neg mg/dL (NEGATIVE) 01/16/19 18:58 Urine Ketones Negative mg/dL (NEGATIVE) 01/16/19 18:58 Urine Blood Negative (NEGATIVE) 01/16/19 18:58 Urine Nitrate Negative (NEGATIVE) 01/16/19 18:58 Urine Bilirubin Negative (NEGATIVE) 01/16/19 18:58 Urine Urobilinogen 0.2 mg/dL (0.2-1.0) 01/16/19 18:58 Ur Leukocyte Esterase Neg Frank/uL (Negative) 01/16/19 18:58 Urine RBC (Auto) 1 /hpf (0-3) 01/16/19 18:58 Urine Microscopic WBC 1 /hpf (0-5) 01/16/19 18:58 Ur Squamous Epith Cells < 1 /hpf (0-5) 01/16/19 18:58 Urine Bacteria Rare (<OCC) 01/16/19 18:58 Urine Opiates Screen Negative (NEGATIVE) 01/16/19 18:58 Urine Methadone Screen Negative (NEGATIVE) 01/16/19 18:58 Ur Barbiturates Screen Negative (NEGATIVE) 01/16/19 18:58 Ur Phencyclidine Scrn Negative (NEGATIVE) 01/16/19 18:58 Ur Amphetamines Screen Negative (NEGATIVE) 01/16/19 18:58 U Benzodiazepines Scrn Negative (NEGATIVE) 01/16/19 18:58 U Oth Cocaine Metabols Negative (NEGATIVE) 01/16/19 18:58 U Cannabinoids Screen Positive (NEGATIVE) H 01/16/19 18:58 Hepatitis A IgM Ab Negative (NEGATIVE) 01/19/19 04:56 Hep Bs Antigen Negative (NEGATIVE) 01/19/19 04:56 Hep B Core IgM Ab Negative (NEGATIVE) 01/19/19 04:56 Hepatitis C Antibody Reactive (NEGATIVE) 01/19/19 04:56 HIV 1&2 Antibody Screen Negative (NEGATIVE) 01/19/19 04:56 - Hospital Course Hospital Course: 73 y/o male with history of CAD, HTN and bradycardia admitted to [facility] for evaluation and treatment of Epigastric pain radiating to chest and bradycardia. After admission patient was started on procardia, Cardiology consulted for bradycardia and cleared from cardiovascular point of view and no further intervention is recommended. Dr. Russ/HemOnc was consulted for chronic leukopenia: likely due to chronic alcohol, negative Hep panel and HIV. Patient remained stable, no symptoms currently, patient understands and agrees with D/c plan. Discharge Exam - Head Exam Head Exam: ATRAUMATIC, NORMAL INSPECTION - Eye Exam Eye Exam: EOMI, Normal appearance, PERRL Pupil Exam: NORMAL ACCOMODATION - ENT Exam ENT Exam: Mucous Membranes Moist - Neck Exam Neck exam: Full Rom - Respiratory Exam Respiratory Exam: Clear to PA & Lateral, NORMAL BREATHING PATTERN, UNREMARKABLE - Cardiovascular Exam Cardiovascular Exam: Bradycardia, REGULAR RHYTHM, +S1, +S2 - GI/Abdominal Exam GI & Abdominal Exam: Normal Bowel Sounds, Soft. absent: Tenderness - Extremities Exam Extremities exam: normal inspection - Back Exam Back exam: absent: CVA tenderness (L), CVA tenderness (R) - Neurological Exam Neurological exam: Alert, CN II-XII Intact, Normal Gait, Oriented x3, Reflexes Normal - Psychiatric Exam Psychiatric exam: Normal Affect - Skin Skin Exam: Dry, Intact, Normal Color, Warm Discharge Plan - Discharge Medications Prescriptions: amLODIPine [Norvasc] 10 mg PO DAILY #30 tab NIFEdipine ER [Procardia XL] 30 mg PO DAILY #30 ter - Follow Up Plan Condition: FAIR Disposition: HOME/ ROUTINE Patient education suggested?: Yes Instructions: Bradycardia (DC), Alcohol Abuse and Alcoholism (DC) Additional Instructions: F/u with PMD, hemonc and cardiology in 1 week Referrals: Baldemar Russ MD [Staff Provider] - Vitaly Delcid MD [Staff Provider] -
[2019-01-19 16:18] VITALS: BP 97/48; PULSE 83; TEMP 99; O2SAT 95
== END 2019-01-19 15:15 | disposition home or self-care (01) | DRG 310 ==
LOC: H.ER 16:14 → H.ERHOLD 20:16 → H.ICU/CCU 01-17 01:00
PROVIDERS: ADMIT Internal Medicine; ATTEND Internal Medicine
DX: I49.5 Sick sinus syndrome (principal); K29.00 Acute gastritis without bleeding; R07.89 Other chest pain; F12.90 Cannabis use, unspecified, uncomplicated; F10.10 Alcohol abuse, uncomplicated; I25.10 Atherosclerotic heart disease of native coronary artery without angina pectoris; D70.9 Neutropenia, unspecified; D53.9 Nutritional anemia, unspecified; I10 Essential (primary) hypertension; R74.0 Nonspecific elevation of levels of transaminase and lactic acid dehydrogenase [LDH]; Z91.19 Patient's noncompliance with other medical treatment and regimen; F17.210 Nicotine dependence, cigarettes, uncomplicated; Z59.0 Homelessness

== ENCOUNTER 2019-01-19 16:10 | Emergency (ER) | payer MEDICARE, OTHER ==
[2019-01-19 16:10] VITALS: BMI 21.4
[2019-01-19 16:23] VITALS: BP 115/74; PULSE 71; RESP 18; TEMP 98.2; O2SAT 98
[2019-01-19] MEDS ORDERED: Sodium Chloride 0.9% 1,000 ML IV STA (16:49)
[2019-01-19 17:40] LABS: EOS % 1.1 % (0.0-4.0); HEMOGLOBIN 15.4 g/dL (12.0-18.0); LYMPH # 1.1 K/uL (1.0-4.3); LYMPH % 36.2 % (20.0-40.0); MEAN CELL VOLUME 95.2 fl (80.0-94.0); MEAN CORPUSCULAR HEMOGLOBIN 31.3 pg (27.0-31.0); MEAN CORPUSCULAR HGB CONC 32.9 g/dL (33.0-37.0); MONO # 0.4 K/uL (0.0-0.8); MONO % 12.4 % (0.0-10.0); NEUT # 1.5 K/uL (1.8-7.0); NEUT % 49.3 % (50.0-75.0); NRBC % 0.6 % (0.0-0.0); RBC 4.93 Mil/uL (4.40-5.90); RED CELL DISTRIBUTION WIDTH 13.9 % (11.5-14.5); WHITE BLOOD COUNT 3.1 K/uL (4.8-10.8)
[2019-01-19 18:00] LABS: ALB/GLOB RATIO 1.1 (1.0-2.1); ALBUMIN 4.7 g/dL (3.5-5.0); ALT/SGPT 119 U/L (21-72); AST/SGOT 115 U/L (17-59); BLOOD UREA NITROGEN 27 mg/dl (9-20); CALCIUM 9.5 mg/dL (8.4-10.2); GFR NON-AFRICAN AMERICAN > 60
--- NOTE | 2019-01-19 18:00 | ED PDOC ---
HPI:Nausea, Vomiting, Diarrhea Time Seen by Provider: 01/19/19 16:46 Chief Complaint (Nursing): Abdominal Pain Chief Complaint (Provider): Nausea and vomiting History Per: Patient History/Exam Limitations: no limitations Current Symptoms Are (Timing): Still Present Additional Complaint(s): 73 y/o male presents to the ER with nausea and vomiting. Patient was recently admitted to this hospital for chest pain and was discharged this morning. Patient stated he felt fine but a couple hours after getting home, he felt dizzy, weak, and had a couple episodes of vomiting. He states he still feels nauseous. Denies chest pain or abdominal pain. PMD: none provided Past Medical History Reviewed: Historical Data, Nursing Documentation, Vital Signs Vital Signs: Last Vital Signs Temp 98.2 F 01/19/19 16:20 Pulse 71 01/19/19 16:20 Resp 18 01/19/19 16:20 BP 115/74 01/19/19 16:20 Pulse Ox 98 01/19/19 16:20 Primary Care Provider: Viet Brar - Medical History PMH: Gastritis, HTN Denies: Chronic Kidney Disease - Surgical History Surgical History: No Surg Hx - Family History Family History: States: Unknown Family Hx - Home Medications Home Medications: Ambulatory Orders Medication Instructions Recorded Ergocalciferol (Vitamin D2) 50,000 unit PO DAILY 01/17/19 [Vitamin D2] Finasteride [Proscar] 5 mg PO DAILY 01/17/19 Lisinopril [Zestril] 10 mg PO DAILY 01/17/19 Omeprazole 20 mg PO DAILY 01/17/19 NIFEdipine ER [Procardia XL] 30 mg PO DAILY #30 ter 01/19/19 Ondansetron ODT [Zofran ODT] 4 mg PO Q8 PRN #12 odt 01/19/19 amLODIPine [Norvasc] 10 mg PO DAILY #30 tab 01/19/19 - Allergies Allergies/Adverse Reactions: Allergies Allergy/AdvReac Type Severity Reaction Status Date / Time No Known Allergies Allergy Verified 01/19/19 16:20 Review of Systems ROS Statement: Except As Marked, All Systems Reviewed And Found Negative Cardiovascular: Negative for: Chest Pain Gastrointestinal: Positive for: Nausea, Vomiting. Negative for: Abdominal Pain Neurological: Positive for: Dizziness Physical Exam - Reviewed Nursing Documentation Reviewed: Yes Vital Signs Reviewed: Yes - Physical Exam Appears: Positive for: No Acute Distress (frail, disheveled) Head Exam: Positive for: ATRAUMATIC, NORMOCEPHALIC Skin: Positive for: Normal Color, Warm, Dry Eye Exam: Positive for: Normal appearance Neck: Positive for: Normal, Painless ROM Cardiovascular/Chest: Positive for: Regular Rate, Rhythm Respiratory: Positive for: Normal Breath Sounds. Negative for: Wheezing, Respiratory Distress Gastrointestinal/Abdominal: Positive for: Normal Exam, Soft. Negative for: Tenderness Extremity: Positive for: Normal ROM Neurological/Psych: Positive for: Awake, Alert, Normal Tone - Laboratory Results Result Diagrams: 01/19/19 17:30 01/19/19 17:30 - ECG O2 Sat by Pulse Oximetry: 98 (RA) Pulse Ox Interpretation: Normal Medical Decision Making Medical Decision Making: Initial Impression: Workup for nausea and vomiting with recent admission for chest pain Initial Plan: --Labs with troponin --Zofran --IV fluids --Reassess 18:28 Labs show elevated ALT, increased from previous. BUN is also elevated. Patient is still in significant pain and continues to vomit in the ED. Will get US of gallbladder and will reevaluate patient. 19:00 Patient to be signed out to Dr. Rivera. Pending US. ------- Scribe Attestation: Documented by Gideon Callaway acting as a scribe for Anjana Rangel MD. Provider Scribe Attestation: All medical record entries made by the Scribe were at my direction and personally dictated by me. I have reviewed the chart and agree that the record accurately reflects my personal performance of the history, physical exam, medical decision making, and the department course for this patient. I have also personally directed, reviewed, and agree with the discharge instructions and disposition. Disposition - Clinical Impression Clinical Impression: Vomiting - Disposition Referrals: Jens Rivera MD [Staff Provider] - Disposition: Transfer of Care Disposition Time: 19:00 Condition: IMPROVED Prescriptions: Ondansetron ODT [Zofran ODT] 4 mg PO Q8 PRN #12 odt PRN Reason: Nausea/Vomiting Instructions: Nausea and Vomiting, Adult (DC) Forms: [employer] (Yoruba) Patient Signed Over To: Tal Rivera
[2019-01-19 18:04] LABS: B-TYPE NATRIURETIC PEPTIDE 165 pg/ml (0-900)
[2019-01-19 20:17] LABS: SPERM URINE RARE /hpf; SQUAMOUS EPITHIAL < 1 /hpf (0-5); URINE BILIRUBIN NEGATIVE (NEGATIVE); URINE BLOOD NEGATIVE (NEGATIVE); URINE CLARITY CLOUDY (Clear); URINE COLOR YELLOW (YELLOW); URINE GLUCOSE (UA) NEG (NEGATIVE); URINE LEUKOCYTE ESTERASE NEG Leu/uL (Negative); URINE PROTEIN 30 mg/dL (NEGATIVE); URINE UROBILINOGEN 0.2-1.0 mg/dL (0.2-1.0)
--- NOTE | 2019-01-19 20:45 | ED PDOC ---
- Laboratory Results Result Diagrams: 01/19/19 17:30 01/19/19 17:30 Lab Results: Troponin I 0.0130 ng/mL (0.00-0.120) 01/19/19 17:30 NT-Pro-B Natriuret Pep 165 pg/ml (0-900) 01/19/19 17:30 Total Bilirubin 0.4 mg/dl (0.2-1.3) 01/19/19 17:30 AST 115 U/L (17-59) H 01/19/19 17:30 ALT 119 U/L (21-72) H D 01/19/19 17:30 Alkaline Phosphatase 67 U/L (38-126) 01/19/19 17:30 Total Protein 9.1 G/DL (6.3-8.2) H 01/19/19 17:30 Albumin 4.7 g/dL (3.5-5.0) 01/19/19 17: Globulin 4.4 gm/dL (2.2-3.9) H 01/19/19 17:30 Albumin/Globulin Ratio 1.1 (1.0-2.1) 01/19/19 17:30 Urine Color Yellow (YELLOW) 01/19/19 20:00 Urine Clarity Cloudy (Clear) 01/19/19 20:00 Urine pH 5.0 (5.0-8.0) 01/19/19 20:00 Ur Specific [place] 1.020 (1.003-1.030) 01/19/19 20:00 Urine Protein 30 mg/dL (NEGATIVE) 01/19/19 20:00 Urine Glucose (UA) Neg mg/dL (NEGATIVE) 01/19/19 20:00 Urine Ketones Trace mg/dL (NEGATIVE) 01/19/19 20:00 Urine Blood Negative (NEGATIVE) 01/19/19 20:00 Urine Nitrate Negative (NEGATIVE) 01/19/19 20:00 Urine Bilirubin Negative (NEGATIVE) 01/19/19 20:00 Urine Urobilinogen 0.2-1.0 mg/dL (0.2-1.0) 01/19/19 20:00 Ur Leukocyte Esterase Neg Frank/uL (Negative) 01/19/19 20:00 Urine RBC (Auto) 2 /hpf (0-3) 01/19/19 20:00 Urine Microscopic WBC 3 /hpf (0-5) 01/19/19 20:00 Ur Squamous Epith Cells < 1 /hpf (0-5) 01/19/19 20:00 Hyaline Casts 6-10 /hpf (0-2) H 01/19/19 20:00 Urine Sperm (Auto) Rare /hpf (NONE) H 01/19/19 20:00 - ECG O2 Sat by Pulse Oximetry: 98 (RA) Medical Decision Making Medical Decision Makin:00 Patient signed out to this provider from Dr. Rangel. Pending US. 19:59 Abdomen US Findings Liver Measures 15.3 cm in length. Increased echogenicity of the liver parenchyma. No mass. No intrahepatic bile duct dilatation. Gallbladder Multiple echogenic non-shadowing non-mobile foci, the largest measures 0.7 x 0.8 x 0.5 cm. Wall thickness measures 1.5 mm. Common bile duct Measures 3.5 mm. No stones. No dilatation. Pancreas Unremarkable as visualized. No mass. No ductal dilatation. Right kidney Measures 10 x 4.7 x 3.1 cm in length. Normal echogenicity. No calculus, mass, or hydronephrosis. Aorta No aneurysmal dilatation. IVC Unremarkable. Other Findings None. Impression 1. Fatty liver. 2. Multiple gallbladder echogenic non-shadowing non-mobile foci compatible with gallstones. No evidence of cholecystitis. 20:07 Upon reevaluation, patient is feeling well and tolerating PO. Patient informed of results including fatty liver and gallstones found on US. Advised patient to consider diet modification and alcohol abstention. Recommended close follow up with Dr. Rivera. Patient is very well appearing upon discharge. Scribe Attestation: Documented by Gideon Callaway acting as a scribe for Tal Rivera MD. Provider Scribe Attestation: All medical record entries made by the Scribe were at my direction and personally dictated by me. I have reviewed the chart and agree that the record accurately reflects my personal performance of the history, physical exam, medical decision making, and the department course for this patient. I have also personally directed, reviewed, and agree with the discharge instructions and disposition. Disposition - Clinical Impression Clinical Impression: Vomiting - POA Present On Arrival: None - Disposition Referrals: Jens Rivera MD [Staff Provider] - Disposition: Routine/Home Disposition Time: 20:07 Condition: IMPROVED Prescriptions: Ondansetron ODT [Zofran ODT] 4 mg PO Q8 PRN #12 odt PRN Reason: Nausea/Vomiting Instructions: Nausea and Vomiting, Adult (DC) Forms: [employer] (Trinidadian)
--- NOTE | 2019-01-20 13:00 | CARD ---
APPROVED REPORT Date of service: 01/19/2019 EKG Measurement Heart [id number] <Conclusion> Normal sinus rhythm Possible Left atrial enlargement Cannot rule out small or absent R waves V1-V3, may be due to lead placement or possible septal infarct age undetermined. Abnormal ECG
--- NOTE | 2019-01-20 17:34 | US ---
Date of service: 01/19/2019 HISTORY: vomiting and elevated ALT COMPARISON: Limited right upper quadrant abdomen ultrasound 01/16/2019. TECHNIQUE: Sonographic evaluation of the right upper quadrant of the abdomen. FINDINGS: LIVER: Measures 15.3 cm in length. Normal echogenicity of the liver parenchyma. No mass. No intrahepatic bile duct dilatation. GALLBLADDER: Gallbladder is mildly distended with the same pattern of intraluminal ovoid echoes in nondependent as well as dependent positions against the gallbladder wall suggestive of possible cholelithiasis though the possibility of adenomyosis or gallbladder polyps is favored given lack of shadowing. Still, no color blood flow has been demonstrated within these foci. No pericholecystic fluid or significant mural thickening appreciated to suggest acute cholecystitis. COMMON BILE DUCT: Measures 3.5 mm. No stones. No dilatation. PANCREAS: Unremarkable as visualized. No mass. No ductal dilatation. RIGHT KIDNEY: Measures 10.0 cm in length. Normal echogenicity. No calculus, mass, or hydronephrosis. AORTA: No aneurysmal dilatation. IVC: Unremarkable. OTHER FINDINGS: None . IMPRESSION: No significant interval change in abnormal gallbladder findings comprised of polyps or adenomyosis, remaining favored over cholelithiasis given the complete lack of shadowing with any of these foci. Gallbladder is distended but no mural thickening or pericholecystic fluid collection is evident and the common duct is normal in caliber once again, as imaged. No reported sonographic Garza sign.
== END 2019-01-19 21:30 | disposition home or self-care (01) ==
LOC: H.ER 16:10
DX: R11.10 Vomiting, unspecified (principal); I10 Essential (primary) hypertension; Z79.899 Other long term (current) drug therapy; K80.20 Calculus of gallbladder without cholecystitis without obstruction; K76.0 Fatty (change of) liver, not elsewhere classified
CPT/HCPCS: 76705; 80053; 81003; 83735; 83880; 84100; 84484; 85025; 93005; 96374; 96375; 99285; J2405; J2765; J7030